=== PATIENT | male | born 1960 | race Caucasian/White ===

== ENCOUNTER 2017-12-18 08:56 | Emergency (ER) | payer OTHER, MEDICARE ==
[2017-12-18] MEDS ORDERED: SODIUM CHLORIDE 0.9% 1,000 ML IV STA (08:58)
[2017-12-18] MEDS ORDERED: MORPHINE SULFATE 4 MG/ML SYRINGE IVP STA (08:59)
[2017-12-18] MEDS ORDERED: ACETAMINOPHEN IV (For NPO) 1,000 MG in EMPTY BAG 1 BAG IVPB STA (09:02)
[2017-12-18 09:10] VITALS: TEMP 97.6
--- NOTE | 2017-12-18 09:30 | XR ---
EXAMINATION TYPE: XR chest 1V portable DATE OF EXAM: 12/18/2017 COMPARISON: Prior chest 03/26/2013 HISTORY: Trauma and pain TECHNIQUE: frontal view of the chest is obtained on 2 images. FINDINGS: There is no focal air space opacity, pleural effusion, or pneumothorax seen. The cardiac silhouette size is stable, enlarged. There are overlying cardiac leads. The osseous structures are i ntact. IMPRESSION: No acute process.
--- NOTE | 2017-12-18 09:33 | XR ---
AP pelvis HISTORY: Trauma and pain Angle frontal view of the pelvis No comparisons Patient is rotated. Prominence along the femoral necks could be due to femoral acetabular impingement , there is associated joint space loss, marginal spurring. Bone mineralization and alignment are main tained. Degenerative disc changes are present in the visualized spine. IMPRESSION: No fracture or dislocation is evident. Follow-up as indicated. Rotated exam.
[2017-12-18 09:37] LABS: Anisocytosis Slight; Basophils % (A) 1 %; Eosinophils # (A) 0.2 k/uL (0-0.7); Eosinophils % (A) 6 %; HCT 26.2 % (39.0-53.0); HGB 7.3 gm/dL (13.0-17.5); Hypochromasia Marked; Lymphocytes # (A) 0.6 k/uL (1.0-4.8); Lymphocytes % (A) 20 %; MCH 19.1 pg (25.0-35.0); MCHC 28.1 g/dL (31.0-37.0); Mean Platelet Volume 7.5; Microcytosis Marked; Monocytes # (A) 0.2 k/uL (0-1.0); Monocytes % (A) 7 %; Neutrophils # (A) 1.9 k/uL (1.3-7.7); Neutrophils % (A) 64 %; Poikilocytosis Slight; RBC 3.85 m/uL (4.30-5.90); RDW 17.9 % (11.5-15.5)
[2017-12-18 09:44] LABS: ALT 56 U/L (21-72); AST 62 U/L (17-59); Alcohol <10 mg/dL; Alkaline Phosphatase 102 U/L (38-126); Anion Gap 5 mmol/L; Blood Urea Nitrogen 13 mg/dL (9-20); Calcium 8.1 mg/dL (8.4-10.2); Carbon Dioxide 22 mmol/L (22-30); Chloride 112 mmol/L (98-107); Glucose 86 mg/dL (74-99); Potassium 4.2 mmol/L (3.5-5.1); Sodium 139 mmol/L (137-145); Total Bilirubin 0.6 mg/dL (0.2-1.3); Total Protein 5.8 g/dL (6.3-8.2)
[2017-12-18 09:48] LABS: Platelet Count 60 k/uL (150-450)
[2017-12-18 10:00] LABS: Creatine Kinase 216 U/L (55-170)
[2017-12-18 10:04] VITALS: BP 111/57; PULSE 73; RESP 18
[2017-12-18] MEDS ORDERED: ONDANSETRON 4 MG/2 ML VIAL IVP STA (10:04)
[2017-12-18 10:06] LABS: INR 1.3 (<1.2); Partial Thromboplastin Time 28.4 sec (22.0-30.0); Prothrombin Time 12.6 sec (9.0-12.0)
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
[2017-12-18 10:13] LABS: Troponin I <0.012 ng/mL (0.000-0.034)
== END 2017-12-18 10:59 | disposition home or self-care (01) ==
LOC: EC 08:56
DX: S20.219A Contusion of unspecified front wall of thorax, initial encounter (principal); M25.579 Pain in unspecified ankle and joints of unspecified foot; R06.02 Shortness of breath; K21.9 Gastro-esophageal reflux disease without esophagitis; Z79.899 Other long term (current) drug therapy; Z88.0 Allergy status to penicillin; Z88.6 Allergy status to analgesic agent; V68.5XXA Driver of heavy transport vehicle injured in noncollision transport accident in traffic accident, initial encounter; Y93.89 Activity, other specified; Y92.410 Unspecified street and highway as the place of occurrence of the external cause
CPT/HCPCS: 36415; 93005; 86900; 86901; 80053; 82550; 82553; 84484; 85025; 85610; 85730; 86850; 80320; 72170; 73610; 71045; 71260; 74177; 99285; 96374; 96375; 96361 ×2; J2405; J0131; Q9967

== ENCOUNTER 2017-12-23 23:20 | Emergency (ER) | payer MEDICARE, OTHER ==
[2017-12-23] MEDS ORDERED: SODIUM CHLORIDE 0.9% 1,000 ML IV STA (23:44)
[2017-12-23] MEDS ORDERED: PANTOPRAZOLE 40 MG/10 ML VIAL IVP STA (23:44)
[2017-12-23] MEDS ORDERED: ONDANSETRON 4 MG/2 ML VIAL IVP STA (23:44)
[2017-12-23] MEDS ORDERED: MORPHINE SULFATE 4 MG/ML SYRINGE IVP STA (23:45)
[2017-12-24 00:22] LABS: Anisocytosis Slight; HCT 28.8 % (39.0-53.0); HGB 8.3 gm/dL (13.0-17.5); Hypochromasia Marked; MCH 19.7 pg (25.0-35.0); MCHC 28.9 g/dL (31.0-37.0); MCV 68.1 fL (80.0-100.0); Mean Platelet Volume 7.5; Microcytosis Marked; Poikilocytosis Slight; RBC 4.23 m/uL (4.30-5.90); RDW 19.4 % (11.5-15.5); WBC 4.1 k/uL (3.8-10.6)
[2017-12-24 00:33] LABS: ALT 61 U/L (21-72); AST 69 U/L (17-59); Albumin 3.3 g/dL (3.5-5.0); Alkaline Phosphatase 143 U/L (38-126); Anion Gap 5 mmol/L; Blood Urea Nitrogen 13 mg/dL (9-20); Calcium 8.1 mg/dL (8.4-10.2); Carbon Dioxide 23 mmol/L (22-30); Chloride 109 mmol/L (98-107); Glucose 96 mg/dL (74-99); Potassium 4.8 mmol/L (3.5-5.1); Sodium 137 mmol/L (137-145); Total Bilirubin 1.1 mg/dL (0.2-1.3); Total Protein 6.6 g/dL (6.3-8.2)
[2017-12-24 00:40] LABS: Creatine Kinase 87 U/L (55-170)
[2017-12-24 00:53] LABS: Troponin I <0.012 ng/mL (0.000-0.034)
[2017-12-24 01:05] LABS: Basophils # (M) 0.04 k/uL (0-0.2); Eosinophils # (M) 0.41 k/uL (0-0.7); Lymphocytes # (M) 0.82 k/uL (1.0-4.8); Monocytes # (M) 0.16 k/uL (0-1.0); Neutrophils # (M) 2.67 k/uL (1.3-7.7); Neutrophils % (M) 65 %; Nucleated Red Blood Cells 0 /100 WBC (0-0); Ovalocytes Present; Platelet Count 72 k/uL (150-450); Poikilocytosis (M) Present; Target Cells Present; Total Cells Counted 100
[2017-12-24 01:06] LABS: Polychromasia Present
--- NOTE | 2017-12-24 01:10 | XR ---
EXAMINATION TYPE: XR chest 2V DATE OF EXAM: 12/24/2017 COMPARISON: 12/18/2017 HISTORY: Chest pain TECHNIQUE: Frontal and lateral views of the chest are obtained. FINDINGS: There is no heart failure nor confluent pneumonic infiltrate. There are chest leads. Costo phrenic angles are clear. Bones appear osteopenic. Heart is borderline enlarged. IMPRESSION: No active cardiopulmonary disease. No change.
--- NOTE | 2017-12-24 01:11 | XR ---
EXAMINATION TYPE: XR lumbar spine 2 or 3V DATE OF EXAM: 12/24/2017 COMPARISON: NONE HISTORY: Back pain TECHNIQUE: 3 views FINDINGS: Lumbar vertebra have normal spacing and alignment. Posterior elements are intact. There is minimal spur formation. Sacroiliac joints appear intact. IMPRESSION: Negative lumbar spine exam. No compression fracture.
[2017-12-24] MEDS ORDERED: ONDANSETRON 4 MG/2 ML VIAL IVP STA (01:12)
--- NOTE | 2017-12-24 01:14 | XR ---
EXAMINATION TYPE: XR thoracic spine complete DATE OF EXAM: 12/24/2017 COMPARISON: NONE HISTORY: Back pain TECHNIQUE: 3 views FINDINGS: Thoracic vertebra have normal alignment. There is 20% anterior wedging of T11 that is old a nd could be developmental. There is 40% anterior wedging of T8 vertebra that shows no spurring. This wedging was also present on the old chest x-ray of 03/26/2013 and appears not significantly different . There is no paraspinal mass. Posterior elements are intact.. IMPRESSION: Mild compression deformities as above appear old and stable compared to 5 years ago. No a cute fracture seen.
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
[2017-12-24 03:14] VITALS: BP 145/65; PULSE 59; RESP 16; TEMP 97.2
[2017-12-25] MEDS ORDERED: LIDOCAINE 5% PATCH TOPICAL SCH (03:00)
== END 2017-12-24 03:21 | disposition home or self-care (01) ==
LOC: EC 23:20
DX: K92.2 Gastrointestinal hemorrhage, unspecified (principal); S20.219A Contusion of unspecified front wall of thorax, initial encounter; M54.5 Low back pain; K21.9 Gastro-esophageal reflux disease without esophagitis; Z79.899 Other long term (current) drug therapy; Z88.0 Allergy status to penicillin; Z88.6 Allergy status to analgesic agent; V49.9XXA Car occupant (driver) (passenger) injured in unspecified traffic accident, initial encounter
CPT/HCPCS: 36415; 86900; 86901; 80053; 82550; 82553; 84484; 85025; 85730; 86850; 82272; 72072; 72100; 71046; 99285; 96374; 96375 ×2; 96376; 96361 ×3; J2270; J2405; C9113

== ENCOUNTER → 2018-06-18 | Outpatient (CLI) | payer MEDICARE, OTHER ==
[2018-06-18 10:26] LABS: INR 1.3 (<1.2); Prothrombin Time 12.9 sec (9.0-12.0)
[2018-06-18 11:24] LABS: Anisocytosis Moderate; Basophils % (A) 1 %; Eosinophils # (A) 0.2 k/uL (0-0.7); Eosinophils % (A) 6 %; HCT 34.6 % (39.0-53.0); HGB 9.6 gm/dL (13.0-17.5); Hypochromasia Marked; Lymphocytes # (A) 0.6 k/uL (1.0-4.8); Lymphocytes % (A) 18 %; MCHC 27.7 g/dL (31.0-37.0); MCV 72.4 fL (80.0-100.0); Mean Platelet Volume 6.3; Microcytosis Marked; Monocytes # (A) 0.2 k/uL (0-1.0); Monocytes % (A) 7 %; Neutrophils # (A) 2.1 k/uL (1.3-7.7); Neutrophils % (A) 66 %; RBC 4.78 m/uL (4.30-5.90); RDW 21.9 % (11.5-15.5); WBC 3.1 k/uL (3.8-10.6)
[2018-06-18 11:47] LABS: Ovalocytes Present; Poikilocytosis (M) Present
[2018-06-18 11:48] LABS: Platelet Count 77 k/uL (150-450)
[2018-06-18 16:31] LABS: Alpha Fetoprotein, Tumor Mkr 22.2 ng/mL (0.0-7.9)
[2018-06-18 17:24] LABS: Albumin 3.6 g/dL (3.80-4.90); Albumin/Globulin Ratio 1.16 (1.20-2.10); Bilirubin, Conjugated 0.3 mg/dL (0.20-0.40); Bilirubin,Unconjugated 0.3 mg/dL; Globulin 3.1 g/dL (1.6-3.3); Total Bilirubin 0.6 mg/dL (0.2-1.2); Total Protein 6.7 g/dL (6.2-8.2)
[2018-06-18 18:27] LABS: Hepatitis A Antibody IgM Non-Reactive (Non-Reactive); Hepatitis B Core IgM Non-Reactive (Non-Reactive)
[2018-06-19 14:35] LABS: Hepatits C Virus RNA DETECTED (Not detected); LOG HCV IU/mL 4.75 (<1.08)
== END | disposition home or self-care (01) ==
LOC: LABWHC1 09:44
PROVIDERS: ATTEND Physician Assistant
DX: K74.60 Unspecified cirrhosis of liver (principal); B18.2 Chronic viral hepatitis C
CPT/HCPCS: 36415; 80074; 80076; 82105; 85025; 85610; 86038; 87522

== ENCOUNTER → 2018-08-01 | Outpatient (CLI) | payer MEDICARE, OTHER | END | disposition home or self-care (01) | LOC: LABWHC1 14:56 | PROVIDERS: ATTEND Physician Assistant | DX: B18.2 Chronic viral hepatitis C (principal) | CPT/HCPCS: 36415; 87522 ==

== ENCOUNTER 2020-06-26 08:02 | Observation (INO) | payer OTHER, MEDICARE ==
[2020-06-26 08:13] LABS: Glucose,Whole Blood 91 mg/dL (75-99)
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
[2020-06-26 08:34] LABS: INR 1.2 (<1.2); Partial Thromboplastin Time 26.7 sec (22.0-30.0); Prothrombin Time 12.7 sec (9.0-12.0)
[2020-06-26 08:35] LABS: ALT 34 U/L (4-49); AST 52 U/L (17-59); African American GFR (CKD) >90 (>60 ml/min/1.73 sqM); Albumin 3.5 g/dL (3.5-5.0); Alcohol <10 mg/dL; Alkaline Phosphatase 171 U/L (38-126); Anion Gap 2 mmol/L; Blood Urea Nitrogen 16 mg/dL (9-20); Calcium 8.7 mg/dL (8.4-10.2); Carbon Dioxide 25 mmol/L (22-30); Chloride 109 mmol/L (98-107); Glucose 101 mg/dL (74-99); Non-African American GFR(CKD) >90 (>60 ml/min/1.73 sqM); Potassium 4.2 mmol/L (3.5-5.1); Sodium 136 mmol/L (137-145); Total Bilirubin 1.5 mg/dL (0.2-1.3)
[2020-06-26 08:42] LABS: Basophils % (A) 1 %; Eosinophils # (A) 0.2 k/uL (0-0.7); Eosinophils % (A) 4 %; HCT 42.4 % (39.0-53.0); HGB 13.7 gm/dL (13.0-17.5); Lymphocytes # (A) 0.6 k/uL (1.0-4.8); Lymphocytes % (A) 15 %; MCHC 32.2 g/dL (31.0-37.0); MCV 93.1 fL (80.0-100.0); Mean Platelet Volume 9.8; Monocytes # (A) 0.4 k/uL (0-1.0); Monocytes % (A) 10 %; Neutrophils # (A) 2.7 k/uL (1.3-7.7); Neutrophils % (A) 67 %; RBC 4.56 m/uL (4.30-5.90); RDW 15.4 % (11.5-15.5); WBC 4.1 k/uL (3.8-10.6)
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
[2020-06-26 09:05] LABS: Platelet Count 73 k/uL (150-450)
[2020-06-26 09:12] LABS: Appearance,Urine Clear (Clear); Bilirubin,Urine Negative (Negative); Blood,Urine Negative (Negative); Color,Urine Yellow; Glucose,Urine (UA) Negative (Negative); Ketones,Urine Negative (Negative); Leukocyte Esterase,Urine Negative (Negative); Nitrite,Urine Negative (Negative); Protein,Urine Negative (Negative); Specific Gravity,Urine 1.028 (1.001-1.035)
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
[2020-06-26 09:47] LABS: Amphetamine Screen,Urine Not Detected (NotDetected); Barbiturate Screen,Urine Not Detected (NotDetected); Benzodiazepines Screen,Urine Not Detected (NotDetected); Cocaine Screen,Urine Not Detected (NotDetected); Methadone Screen, Urine Not Detected (NotDetected); Opiate Screen,Urine Not Detected (NotDetected); Oxycodone Screen, Urine Not Detected (NotDetected); Phencyclidine Screen,Urine Not Detected (NotDetected); Tricyclic Antidepressant,Urine Not Detected (NotDetected); Urn Cannabinoid Scrn Detected (NotDetected)
[2020-06-26] MEDS ORDERED: NALOXONE 0.4 MG/ML 1 ML VIAL IV PRN (09:59)
[2020-06-26] MEDS ORDERED: MORPHINE SULFATE 4 MG/ML SYRINGE IVP STA (10:04)
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
[2020-06-26] MEDS ORDERED: MORPHINE SULFATE 2 MG/ML SYRINGE IVP PRN (12:07)
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
[2020-06-26] MEDS: HEPARIN SODIUM,PORCINE 5,000 UNIT/ML 1 ML VIAL SQ SCH (17:52)
[2020-06-26] MEDS: ACETAMINOPHEN TAB 325 MG TAB PO PRN (19:52)
[2020-06-27] MEDS: HEPARIN SODIUM,PORCINE 5,000 UNIT/ML 1 ML VIAL SQ SCH ×3 (00:50→17:20)
[2020-06-27] MEDS: ACETAMINOPHEN TAB 325 MG TAB PO PRN ×4 (03:16→21:05)
[2020-06-27] MEDS: ASPIRIN 325 MG TAB PO SCH (09:10)
[2020-06-27] MEDS: CHOLECALCIFEROL 25 MCG (1000 IU) TABLET PO SCH (09:10)
[2020-06-27] MEDS: VITAMIN E (DL,TOCOPHERYL ACET) 400 UNIT CAP PO SCH (09:10)
[2020-06-27] MEDS: FERROUS SULFATE 325 MG TAB PO SCH (09:10)
[2020-06-27] MEDS: MULTIVITAMINS, THERA 1 EACH TAB PO SCH (09:10)
[2020-06-27] MEDS: MAGNESIUM OXIDE 400 MG TAB PO SCH (09:10)
[2020-06-27] MEDS: CALCIUM CARBONATE 500 MG CHEWABLE PO SCH (09:10)
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
[2020-06-27] MEDS ORDERED: HYDROcodone/APAP 5-325MG 1 EACH TAB PO PRN (10:11)
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
[2020-06-27] MEDS: methocarbamoL 500 MG TAB PO SCH ×2 (17:20→21:06)
[2020-06-28] MEDS: HEPARIN SODIUM,PORCINE 5,000 UNIT/ML 1 ML VIAL SQ SCH ×3 (01:06→16:42)
[2020-06-28] MEDS: ACETAMINOPHEN TAB 325 MG TAB PO PRN ×2 (08:02→16:47)
[2020-06-28] MEDS: ASPIRIN 325 MG TAB PO SCH (08:03)
[2020-06-28] MEDS: methocarbamoL 500 MG TAB PO SCH ×2 (08:03→12:35)
[2020-06-28] MEDS: CHOLECALCIFEROL 25 MCG (1000 IU) TABLET PO SCH (08:03)
[2020-06-28] MEDS: CALCIUM CARBONATE 500 MG CHEWABLE PO SCH (08:03)
[2020-06-28] MEDS: VITAMIN E (DL,TOCOPHERYL ACET) 400 UNIT CAP PO SCH (08:03)
[2020-06-28] MEDS: FERROUS SULFATE 325 MG TAB PO SCH (08:03)
[2020-06-28] MEDS: MAGNESIUM OXIDE 400 MG TAB PO SCH (08:03)
[2020-06-28] MEDS: MULTIVITAMINS, THERA 1 EACH TAB PO SCH (08:03)
[2020-06-28 08:11] VITALS: RESP 16
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
[2020-06-28 13:46] VITALS: BP 141/70; PULSE 72; TEMP 98.1
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
== END 2020-06-28 17:25 | disposition home or self-care (01) ==
LOC: EC 08:02 → 6NMEDSUR 10:00
PROVIDERS: ADMIT Surgery; ATTEND Surgery
DX: M48.54XA Collapsed vertebra, not elsewhere classified, thoracic region, initial encounter for fracture (principal); M54.9 Dorsalgia, unspecified; H91.90 Unspecified hearing loss, unspecified ear; M48.061 Spinal stenosis, lumbar region without neurogenic claudication; M51.26 Other intervertebral disc displacement, lumbar region; R18.8 Other ascites; V43.52XA Car driver injured in collision with other type car in traffic accident, initial encounter; Y92.410 Unspecified street and highway as the place of occurrence of the external cause; Z79.82 Long term (current) use of aspirin
CPT/HCPCS: 96372 ×3; 96374; 99285; 36415; 93005; 97162; 97166; 86900; 86901; 80053; 84484; 85025; 85610; 85730; 86850; 81003; 80306; 80320; 72170; 71045; 72129; 72125; 72132; 70450; 71260; 74177; 72146; 72148; G0378 ×3; J2270; J1644 ×3; Q9967

== ENCOUNTER 2020-08-23 04:23 | Inpatient (IN) | payer MEDICARE, OTHER ==
[2020-08-23] MEDS ORDERED: PANTOPRAZOLE 40 MG/10 ML VIAL IVP STA (04:43)
[2020-08-23] MEDS ORDERED: SODIUM CHLORIDE 0.9% 1,000 ML IV STA (04:43)
--- NOTE | 2020-08-23 04:48 | ED ---
GI Bleed HPI - General Chief complaint: GI Bleed Stated complaint: GI Bleed Time Seen by Provider: 08/23/20 04:43 Source: patient, EMS, RN notes reviewed, old records reviewed Mode of arrival: EMS Limitations: no limitations - History of Present Illness Initial comments: This is a 60-year-old male who is hard of hearing coming in for likely upper GI bleed he has had history of hepatitis C with some liver disease. Patient was treated for about a year ago has had no problems since. Patient has had some dark black tarry stools for a few days now and had an significant episode of bright upper GI, blood bright red blood per vomit. Patient does not feel lightheaded dizzy or weak may have some mild abdominal pain but defervesced to concerning. Otherwise no recent fever cough or congestion MD complaint: blood streaked emesis, gross hematemesis, melena -: days(s) Radiation: none Severity scale (1-10): 7 Quality: painless Consistency: now resolved (Patient has had no vomiting of blood here in the ER) Improves with: none Worsens with: none Context: history of GI bleed, liver disease Associated Symptoms: nausea, vomiting, loss of appetite, malaise, weakness - Related Data Home Medications Medication Instructions Recorded Confirmed Aspirin EC [Ecotrin] 325 mg PO DAILY 06/26/20 06/26/20 Calcium Carbonate [Calcium] 600 mg PO DAILY 06/26/20 06/26/20 Cholecalciferol [Vitamin D3 (25 25 mcg PO DAILY 06/26/20 06/26/20 Mcg = 1000 Iu)] Ferrous Sulfate [Iron (65 MG 325 mg PO DAILY 06/26/20 06/26/20 Elemental)] Magnesium 200 mg PO DAILY 06/26/20 06/26/20 Multivit-Min/FA/Lycopen/Lutein 1 tab PO DAILY 06/26/20 06/26/20 [Centrum Silver Men Tablet] Vitamin E 1,000 unit PO DAILY 06/26/20 06/26/20 Previous Rx's Medication Instructions Recorded HYDROcodone/APAP 5-325MG [Dexter 1 each PO Q6HR PRN #12 tab 06/28/20 5-325] methocarbamoL [Robaxin] 500 mg PO QID #28 tab 06/28/20 Allergies Allergy/AdvReac Type Severity Reaction Status Date / Time ibuprofen [From Motrin] Allergy Unknown Verified 08/23/20 04:34 Penicillins Allergy Unknown Verified 08/23/20 04:34 Review of Systems ROS Statement: Those systems with pertinent positive or pertinent negative responses have been documented in the HPI. ROS Other: All systems not noted in ROS Statement are negative. Past Medical History Past Medical History: GERD/Reflux History of Any Multi-Drug Resistant Organisms: None Reported Past Surgical History: Cholecystectomy, Orthopedic Surgery Additional Past Surgical History / Comment(s): LEFT AND RIGHT SHOULDER, LIVER SURGERY Past Psychological History: No Psychological Hx Reported Smoking Status: Unknown if ever smoked Past Alcohol Use History: None Reported Past Drug Use History: Marijuana General Exam Limitations: no limitations General appearance: alert, in no apparent distress Head exam: Present: atraumatic, normocephalic, normal inspection Eye exam: Present: normal appearance, PERRL, EOMI. Absent: scleral icterus, conjunctival injection, periorbital swelling ENT exam: Present: normal exam, mucous membranes moist Neck exam: Present: normal inspection. Absent: tenderness, meningismus, lymphadenopathy Respiratory exam: Present: normal lung sounds bilaterally. Absent: respiratory distress, wheezes, rales, rhonchi, stridor Cardiovascular Exam: Present: regular rate, normal rhythm, normal heart sounds. Absent: systolic murmur, diastolic murmur, rubs, gallop, clicks GI/Abdominal exam: Present: soft, normal bowel sounds. Absent: distended, tenderness, guarding, rebound, rigid Extremities exam: Present: normal inspection, full ROM, normal capillary refill. Absent: tenderness, pedal edema, joint swelling, calf tenderness Back exam: Present: normal inspection Neurological exam: Present: alert, oriented X3, CN II-XII intact Psychiatric exam: Present: normal affect, normal mood Skin exam: Present: warm, dry, intact, normal color. Absent: rash Course Vital Signs 08/23/20 08/23/20 08/23/20 04:25 05:00 06:06 Temperature 99.0 F Pulse Rate 98 104 H 105 H Respiratory 18 18 18 Rate Blood Pressure 115/82 114/89 124/82 O2 Sat by Pulse 97 97 Oximetry - Reevaluation(s) Reevaluation #1: 08/23/20 06:21 Medical records reviewed Reevaluation #2: 08/23/20 06:21 Patient has no recurrent vomiting here in the ER, no significant amount of blood being passed currently Reevaluation #3: 08/23/20 06:21 Is informed of results here, questions are answered Medical Decision Making - Medical Decision Making 60 male DF for upper GI bleed likely brisk secondary to black tarry nature of stools. Bright red blood upper GI bleed with history of liver disease possible varices. Patient admitted for GI evaluation - Lab Data Result diagrams: 08/23/20 04:51 08/23/20 04:51 Lab Results 08/23/20 08/23/20 08/23/20 Range/Units 04:51 04:51 04:51 WBC 12.4 H (3.8-10.6) k/uL RBC 3.90 L (4.30-5.90) m/uL Hgb 11.6 L (13.0-17.5) gm/dL Hct 35.4 L (39.0-53.0) % MCV 90.7 (80.0-100.0) fL MCH 29.8 (25.0-35.0) pg MCHC 32.9 (31.0-37.0) g/dL RDW 15.4 (11.5-15.5) % Plt Count 171 D (150-450) k/uL MPV 9.4 Neutrophils % 75 % Lymphocytes % 12 % Monocytes % 9 % Eosinophils % 2 % Basophils % 0 % Neutrophils # 9.3 H (1.3-7.7) k/uL Lymphocytes # 1.5 (1.0-4.8) k/uL Monocytes # 1.1 H (0-1.0) k/uL Eosinophils # 0.2 (0-0.7) k/uL Basophils # 0.0 (0-0.2) k/uL PT 15.1 H (9.0-12.0) sec INR 1.5 H (<1.2) APTT 29.7 (22.0-30.0) sec Sodium 133 L (137-145) mmol/L Potassium 4.9 (3.5-5.1) mmol/L Chloride 100 (98-107) mmol/L Carbon Dioxide 29 (22-30) mmol/L Anion Gap 4 mmol/L BUN 31 H (9-20) mg/dL Creatinine 0.80 (0.66-1.25) mg/dL Est GFR (CKD-EPI)AfAm >90 (>60 ml/min/1.73 sqM) Est GFR (CKD-EPI)NonAf >90 (>60 ml/min/1.73 sqM) Glucose 101 H (74-99) mg/dL Calcium 8.2 L (8.4-10.2) mg/dL Magnesium 1.6 (1.6-2.3) mg/dL Total Bilirubin 1.7 H (0.2-1.3) mg/dL AST 82 H (17-59) U/L ALT 23 (4-49) U/L Alkaline Phosphatase 214 H (38-126) U/L Creatine Kinase 100 (55-170) U/L CK-MB (CK-2) (0.0-2.4) ng/mL Troponin I (0.000-0.034) ng/mL Total Protein 6.6 (6.3-8.2) g/dL Albumin 2.9 L (3.5-5.0) g/dL Lipase 243 (23-300) U/L 08/23/20 Range/Units 04:51 WBC (3.8-10.6) k/uL RBC (4.30-5.90) m/uL Hgb (13.0-17.5) gm/dL Hct (39.0-53.0) % MCV (80.0-100.0) fL MCH (25.0-35.0) pg MCHC (31.0-37.0) g/dL RDW (11.5-15.5) % Plt Count (150-450) k/uL MPV Neutrophils % % Lymphocytes % % Monocytes % % Eosinophils % % Basophils % % Neutrophils # (1.3-7.7) k/uL Lymphocytes # (1.0-4.8) k/uL Monocytes # (0-1.0) k/uL Eosinophils # (0-0.7) k/uL Basophils # (0-0.2) k/uL PT (9.0-12.0) sec INR (<1.2) APTT (22.0-30.0) sec Sodium (137-145) mmol/L Potassium (3.5-5.1) mmol/L Chloride (98-107) mmol/L Carbon Dioxide (22-30) mmol/L Anion Gap mmol/L BUN (9-20) mg/dL Creatinine (0.66-1.25) mg/dL Est GFR (CKD-EPI)AfAm (>60 ml/min/1.73 sqM) Est GFR (CKD-EPI)NonAf (>60 ml/min/1.73 sqM) Glucose (74-99) mg/dL Calcium (8.4-10.2) mg/dL Magnesium (1.6-2.3) mg/dL Total Bilirubin (0.2-1.3) mg/dL AST (17-59) U/L ALT (4-49) U/L Alkaline Phosphatase (38-126) U/L Creatine Kinase (55-170) U/L CK-MB (CK-2) 1.3 (0.0-2.4) ng/mL Troponin I <0.012 (0.000-0.034) ng/mL Total Protein (6.3-8.2) g/dL Albumin (3.5-5.0) g/dL Lipase (23-300) U/L Critical Care Time Critical Care Time: Yes Total Critical Care Time: 31 Disposition Clinical Impression: Upper gastrointestinal hemorrhage, Esophageal varices Disposition: ADMITTED IP TO THIS HOSP Condition: Fair Is patient prescribed a controlled substance at d/c from ED?: No Referrals: Felipe Mcallister MD [Primary Care Provider] - 1-2 days
[2020-08-23 05:16] LABS: Basophils % (A) 0 %; Eosinophils # (A) 0.2 k/uL (0-0.7); Eosinophils % (A) 2 %; HCT 35.4 % (39.0-53.0); HGB 11.6 gm/dL (13.0-17.5); Lymphocytes # (A) 1.5 k/uL (1.0-4.8); Lymphocytes % (A) 12 %; MCH 29.8 pg (25.0-35.0); MCHC 32.9 g/dL (31.0-37.0); MCV 90.7 fL (80.0-100.0); Mean Platelet Volume 9.4; Monocytes # (A) 1.1 k/uL (0-1.0); Monocytes % (A) 9 %; Neutrophils # (A) 9.3 k/uL (1.3-7.7); Neutrophils % (A) 75 %; RDW 15.4 % (11.5-15.5); WBC 12.4 k/uL (3.8-10.6)
[2020-08-23 05:24] LABS: INR 1.5 (<1.2); Partial Thromboplastin Time 29.7 sec (22.0-30.0); Prothrombin Time 15.1 sec (9.0-12.0)
[2020-08-23 05:32] LABS: Platelet Count 171 k/uL (150-450)
[2020-08-23 05:33] LABS: ALT 23 U/L (4-49); AST 82 U/L (17-59); African American GFR (CKD) >90 (>60 ml/min/1.73 sqM); Albumin 2.9 g/dL (3.5-5.0); Alkaline Phosphatase 214 U/L (38-126); Anion Gap 4 mmol/L; Blood Urea Nitrogen 31 mg/dL (9-20); Calcium 8.2 mg/dL (8.4-10.2); Carbon Dioxide 29 mmol/L (22-30); Chloride 100 mmol/L (98-107); Creatine Kinase 100 U/L (55-170); Glucose 101 mg/dL (74-99); Lipase 243 U/L (23-300); Magnesium 1.6 mg/dL (1.6-2.3); Non-African American GFR(CKD) >90 (>60 ml/min/1.73 sqM); Potassium 4.9 mmol/L (3.5-5.1); Sodium 133 mmol/L (137-145); Total Bilirubin 1.7 mg/dL (0.2-1.3); Total Protein 6.6 g/dL (6.3-8.2)
[2020-08-23] MEDS ORDERED: NALOXONE 0.4 MG/ML 1 ML VIAL IV PRN (05:40)
[2020-08-23 05:43] LABS: Creatine Kinase MB 1.3 ng/mL (0.0-2.4); Troponin I <0.012 ng/mL (0.000-0.034)
[2020-08-23] MEDS: PANTOPRAZOLE 40 MG/10 ML VIAL IV SCH ×2 (09:23→19:52)
[2020-08-23 11:48] LABS: Basophils % (A) 0 %; Eosinophils # (A) 0.2 k/uL (0-0.7); Eosinophils % (A) 2 %; HCT 31.8 % (39.0-53.0); HGB 10.5 gm/dL (13.0-17.5); Lymphocytes # (A) 1.1 k/uL (1.0-4.8); Lymphocytes % (A) 13 %; MCH 29.9 pg (25.0-35.0); MCHC 32.9 g/dL (31.0-37.0); MCV 90.7 fL (80.0-100.0); Mean Platelet Volume 8.6; Monocytes # (A) 0.8 k/uL (0-1.0); Monocytes % (A) 9 %; Neutrophils # (A) 6.5 k/uL (1.3-7.7); Neutrophils % (A) 74 %; Platelet Count 128 k/uL (150-450); RBC 3.51 m/uL (4.30-5.90); RDW 15.4 % (11.5-15.5); WBC 8.7 k/uL (3.8-10.6)
[2020-08-23] MEDS: IOPAMIDOL CONTRAST (ORAL USE) VIAL PO PRN ×2 (15:45→16:49)
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
--- NOTE | 2020-08-23 18:17 | CT ---
EXAMINATION TYPE: CT abdomen pelvis w con DATE OF EXAM: 08/23/2020 COMPARISON: 06/26/2020. HISTORY: abdominal pain CT DLP: 1320 mGycm Automated exposure control for dose reduction was used. TECHNIQUE: Helical acquisition of images was performed from the lung bases through the pelvis. CONTRAST: Performed with Oral Contrast and with IV Contrast, patient injected with 100 mL of Isovue 300. FINDINGS: LUNG BASES: No significant abnormality is appreciated. LIVER/GB: Redemonstrated hepatic nodular contour consistent with cirrhosis. Ill-defined, low attenuat ing infiltrative lesions throughout the left lobe, measures approximately 10.1 x 7.6 cm. Upper abdomi nal and esophageal varices again seen. PANCREAS: New 2.9 x 2.5 cm anterior peripancreatic mass in the region of the head/neck. SPLEEN: Splenomegaly, stable. ADRENALS: No significant abnormality is seen. KIDNEYS: No significant abnormality is seen. FREE AIR: No free air is visualized. RETROPERITONEAL ADENOPATHY: New left retrocrural lymph node measuring 1.8 cm short axis. Additional smaller retrocrural lymph nodes are seen. REPRODUCTIVE ORGANS: No significant abnormality is seen URINARY BLADDER: No significant abnormality is seen. PELVIC ADENOPATHY: None visualized. OSSEOUS STRUCTURES: No significant abnormality is seen. BOWEL: Small periumbilical and bilateral inguinal hernias communicating with ascites. No bowel obstr uction, free air or fluid. Nonspecific decompressed ascending colon with wall thickening. OTHER: New moderate volume abdominal/pelvic ascites. IMPRESSION: New moderate abdominal/pelvic ascites. Infiltrative left hepatic lobe mass, concerning for malignancy. Also new peripancreatic nodule, and r etrocrural lymphadenopathy, concerning for metastatic disease. Nonspecific ascending/cecal colonic wall thickening. Attention on follow-up.
[2020-08-23] MEDS: ONDANSETRON 4 MG/2 ML VIAL IVP PRN (21:42)
[2020-08-24] MEDS ORDERED: LACTATED RINGERS 1,000 ML IV SCH (07:10)
[2020-08-24] MEDS ORDERED: PROPOFOL 10 MG/ML 20 ML VIAL IV ONE (07:35)
[2020-08-24] MEDS ORDERED: LIDOCAINE 1% INJ 10MG/ML (20 ML MDV) ONE (07:35)
[2020-08-24] MEDS ORDERED: SODIUM CHLORIDE 0.9% 500 ML 500 ML IV ONE (07:39)
--- NOTE | 2020-08-24 08:15 | P.CONS ---
History of Present Illness - Reason for Consult Consult date: 08/23/20 GI bleed Requesting physician: Erick Berry - Chief Complaint GI bleed - History of Present Illness 60-year-old male with a medical history significant for hepatitis C status post treatment with antiviral therapy, GERD and hearing impairment who presented to the emergency department due to concerns over GI bleeding. The patient reports multiple black tarry bowel movements. He denies any abdominal pain in association with the dark colored bowel movements. He does report some episodes of vomiting what he describes as bright red blood. He reports a remote history of ulcer in the past and believes his last EGD was performed 2 years ago. On presentation the patient was found to have a hemoglobin of 11.6 with a total bilirubin of 1.7, alkaline phosphatase 214, AST 82 and ALT 23. Lipase was 243. Patient had elevation of his BUN greater than 30 with a creatinine of 0.8. Hemodynamically the patient is stable and seen in the ER. No other acute complaints at this time. Review of Systems REVIEW OF SYSTEMS: CONSTITUTIONAL: Denies any fevers, chills, weight change or fatigue. CARDIOVASCULAR: Denies any chest pain, palpitations high or low blood pressures RESPIRATORY: Denies any shortness of breath, hemoptysis or cough. GENITOURINARY: No dysuria or hematuria. MUSCULOSKELETAL: No weakness reported. SKIN: Denies any new rashes or lesions, jaundice or pallor. PSYCHIATRIC: Denies any depression or anxiety. NEUROLOGY: Denies headache, denies any new focal deficits, hearing impairment at baseline. EARS/NOSE/THROAT: No recent hearing change, congestion, nasal discharge or sore throat. EYES: No pain in eyes, discharge or change in vision. GASTROINTESTINAL: As per HPI. Past Medical History Past Medical History: GERD/Reflux History of Any Multi-Drug Resistant Organisms: None Reported Past Surgical History: Cholecystectomy, Orthopedic Surgery Additional Past Surgical History / Comment(s): LEFT AND RIGHT SHOULDER, LIVER SURGERY Past Psychological History: No Psychological Hx Reported Smoking Status: Unknown if ever smoked Past Alcohol Use History: None Reported Past Drug Use History: Marijuana - Past Family History Mother Additional Family Medical History / Comment(s): Mother is . She was an alcoholic. Father History Unknown: Yes Additional Family Medical History / Comment(s): Pt does not know who his father is. Medications and Allergies Home Medications Medication Instructions Recorded Confirmed Type Aspirin EC [Ecotrin] 325 mg PO DAILY 06/26/20 08/23/20 History Calcium Carbonate [Calcium] 600 mg PO DAILY 06/26/20 08/23/20 History Cholecalciferol [Vitamin D3 (25 25 mcg PO DAILY 06/26/20 08/23/20 History Mcg = 1000 Iu)] Ferrous Sulfate [Iron (65 MG 325 mg PO DAILY 06/26/20 08/23/20 History Elemental)] Magnesium 200 mg PO DAILY 06/26/20 08/23/20 History Multivit-Min/FA/Lycopen/Lutein 1 tab PO DAILY 06/26/20 08/23/20 History [Centrum Silver Men Tablet] Vitamin E 1,000 unit PO DAILY 06/26/20 08/23/20 History Allergies Allergy/AdvReac Type Severity Reaction Status Date / Time ibuprofen [From Motrin] Allergy Unknown Verified 08/23/20 07:25 Penicillins Allergy Unknown Verified 08/23/20 07:25 Physical Exam Vitals: Vital Signs Temp Pulse Resp BP Pulse Ox 08/23/20 11:00 18 96 08/23/20 10:00 18 96 08/23/20 09:00 98.7 F 90 18 128/79 96 08/23/20 08:00 18 08/23/20 07:52 18 08/23/20 06:06 105 H 18 124/82 97 08/23/20 05:00 104 H 18 114/89 08/23/20 04:25 99.0 F 98 18 115/82 97 Intake and Output 08/22/20 08/23/20 08/23/20 22:59 06:59 14:59 Other: Weight 95.254 kg On physical examination, patient appears comfortable in no apparent distress. HEAD: Normocephalic, atraumatic. EYES: No scleral icterus. No conjunctival injection. MOUTH: No lesions, tongue midline. NECK: Trachea midline, no gross abnormalities. CHEST: Clear to auscultation with no wheezing or rhonchi appreciated. HEART: Regular rate and rhythm. ABDOMEN: Soft, nontender to palpation. Bowel sounds are positive. No organomegaly. No guarding or rigidity. EXTREMITIES: No pedal edema. SKIN: No rashes, no jaundice. NEUROLOGIC: Alert and oriented x3. No focal deficits. Results CBC & Chem 7: 08/23/20 11:35 08/23/20 04:51 Labs: Abnormal Lab Results - Last 24 Hours (Table) 08/23/20 08/23/20 08/23/20 Range/Units 04:51 04:51 04:51 WBC 12.4 H (3.8-10.6) k/uL RBC 3.90 L (4.30-5.90) m/uL Hgb 11.6 L (13.0-17.5) gm/dL Hct 35.4 L (39.0-53.0) % Plt Count (150-450) k/uL Neutrophils # 9.3 H (1.3-7.7) k/uL Monocytes # 1.1 H (0-1.0) k/uL PT 15.1 H (9.0-12.0) sec INR 1.5 H (<1.2) Sodium 133 L (137-145) mmol/L BUN 31 H (9-20) mg/dL Glucose 101 H (74-99) mg/dL Calcium 8.2 L (8.4-10.2) mg/dL Total Bilirubin 1.7 H (0.2-1.3) mg/dL AST 82 H (17-59) U/L Alkaline Phosphatase 214 H (38-126) U/L Albumin 2.9 L (3.5-5.0) g/dL 08/23/20 Range/Units 11:35 WBC (3.8-10.6) k/uL RBC 3.51 L (4.30-5.90) m/uL Hgb 10.5 L (13.0-17.5) gm/dL Hct 31.8 L (39.0-53.0) % Plt Count 128 L (150-450) k/uL Neutrophils # (1.3-7.7) k/uL Monocytes # (0-1.0) k/uL PT (9.0-12.0) sec INR (<1.2) Sodium (137-145) mmol/L BUN (9-20) mg/dL Glucose (74-99) mg/dL Calcium (8.4-10.2) mg/dL Total Bilirubin (0.2-1.3) mg/dL AST (17-59) U/L Alkaline Phosphatase (38-126) U/L Albumin (3.5-5.0) g/dL CT scan - abdomen: report reviewed (Computed tomography scan of the abdomen ordered an report pending.) Assessment and Plan (1) Upper gastrointestinal hemorrhage Narrative/Plan: 60-year-old male with multiple medical comorbidities including hepatitis C of the liver treated in the past as well as prior upper GI bleed who presented with multiple episodes of emesis and blood in his vomitus. Found to have an acute fall in his hemoglobin of 11.6 on presentation. Patient reports significant abdominal tenderness after presentation and plan is for computed tomography scan of the abdomen for further evaluation. Unclear etiology of GI bleeding with differential including variceal bleeding, peptic ulcer disease, gastritis, or other etiology. Current Visit: Yes Status: Acute Code(s): K92.2 - GASTROINTESTINAL HEMORRHAGE, UNSPECIFIED SNOMED Code(s): 65690332 (2) Esophageal varices Current Visit: Yes Status: Acute Code(s): I85.00 - ESOPHAGEAL VARICES WIT HOUT BLEEDING SNOMED Code(s): 85707357 (3) Cirrhosis Current Visit: Yes Status: Acute Code(s): K74.60 - UNSPECIFIED CIRRHOSIS OF LIVER SNOMED Code(s): 63309434 (4) Anemia associated with acute blood loss Current Visit: Yes Status: Acute Code(s): D62 - ACUTE POSTHEMORRHAGIC ANEMIA SNOMED Code(s): 042391701 (5) History of type C viral hepatitis Current Visit: Yes Status: Acute Code(s): Z86.19 - PERSONAL HISTORY OF OTHER INFECTIOUS AND PARASITIC DISEASES SNOMED Code(s): 49126403907533 Plan: Supportive care Clear liquid diet and nothing by mouth after midnight Continue monitor hemoglobin and hematocrit and transfuse as needed Computed tomography scan of the abdomen ordered for evaluation of abdominal pain Plan for EGD tomorrow for further evaluation Protonix 40 mg IV twice a day Further recommendations pending findings of EGD Thank you for allowing us participate in the care of the patient
--- NOTE | 2020-08-24 08:24 | P.PCN ---
Date of Procedure: 08/24/20 Description of Procedure: BRIEF HISTORY: 60-year-old male with a medical history significant for hepatitis C status post treatment with antiviral therapy, GERD and hearing impairment who presented to the emergency department due to concerns over GI bleeding. The patient reports multiple black tarry bowel movements. He denies any abdominal pain in association with the dark colored bowel movements. He does report some episodes of vomiting what he describes as bright red blood. He reports a remote history of ulcer in the past and believes his last EGD was performed 2 years ago. On presentation the patient was found to have a hemoglobin of 11.6 with a total bilirubin of 1.7, alkaline phosphatase 214, AST 82 and ALT 23. Lipase was 243. Patient had elevation of his BUN greater than 30 with a creatinine of 0.8. Hemodynamically the patient is stable and seen in the ER. No other acute complaints at this time. PROCEDURE PERFORMED: Esophagogastroduodenoscopy with biopsy and esophageal variceal banding. PREOPERATIVE DIAGNOSIS: GI bleed, melena, anemia of acute blood loss. ESTIMATED BLOOD LOSS: Minimal. IV sedation per anesthesia. PROCEDURE: After informed consent was obtained, the patient was brought into the endoscopy unit. IV sedation was administered by Anesthesia under continuous monitoring. Initially the Olympus GIF-190 video endoscope was inserted into the mouth. Esophagus intubated without any difficulty. It was gradually advanced into the stomach and duodenum and carefully examined. The bulb and the second part of the duodenum appeared normal, with biopsies taken. The scope at this time was withdrawn to the stomach, adequately insufflated with air, and upon careful examination, mucosa of the antrum, body, cardia and the fundus was significant for some mild punctate erythema in the cardia, fundus and body suggestive of mild portal hypertensive gastropathy. There were also for antral subcentimeter cratered ulcerations which were biopsies. No active bleeding or old blood noted. The scope was then withdrawn into the esophagus. The GE junction was located at 39 cm from the incisors. The esophagus was significant for multiple columns of large varices extending from the GE junction to the midesophagus with severe serial band ligation 13 occurring in a circumferential manner from the distal esophagus to the midesophagus. There were no erosions or ulcerations seen and the patient tolerated the procedure well. IMPRESSION: 1. No active bleeding or old blood. 2. Four nonbleeding antral ulcers without high risk stigmata for bleeding. 3. Large esophageal varices with band ligation 13. 4. Biopsies of the antral ulcers and duodenum. RECOMMENDATIONS: The findings of this examination were discussed with the patient.. Okay for sodium restricted liquid diet. Await pathology from biopsies. Computed tomography scan resulted today with findings of possible hepatic mass and lymphadenopathy, at this time oncology service will be consulted and tumor markers ordered. Ascites was also seen and the patient will have ultrasound guided paracentesis with fluid studies. Further recommendations pending findings.
[2020-08-24 08:37] LABS: HCT 30.5 % (39.6-50.0); HGB 9.8 g/dL (13.0-17.0); MCH 30.2 pg (27.0-32.0); MCHC 32.1 g/dL (32.0-37.0); MCV 94.1 fL (80.0-97.0); Mean Platelet Volume 12.5 fL (9.5-12.2); Platelet Count 119 X 10*3/uL (140-440); RBC 3.24 X 10*6/uL (4.40-5.60); RDW 16.1 % (11.5-14.5); WBC 11.65 X 10*3/uL (4.50-10.00)
[2020-08-24] MEDS: PANTOPRAZOLE 40 MG/10 ML VIAL IV SCH ×2 (09:20→21:17)
--- NOTE | 2020-08-24 10:51 | US ---
EXAMINATION TYPE: US abdomen limited DATE OF EXAM: 08/24/2020 COMPARISON: CT 08/23/20 CLINICAL HISTORY: ascites. Moderate amount of free fluid in abdomen. IMPRESSION: Moderate ascites
--- NOTE | 2020-08-24 12:00 | US ---
Ultrasound-guided paracentesis. DATE OF EXAM: 08/24/2020 CLINICAL HISTORY: Ascites The procedure was discussed with the patient. The risks, complications, benefits, and alternatives we re discussed and any questions were answered. Informed consent was obtained. The patient was placed s upine on the ultrasound table and prepped and draped in the usual sterile fashion. All elements of maximal barrier technique were utilized. Under ultrasound guidance, access into the right lower quadrant was obtained, via the paracentesis catheter system and direct ultrasound guidanc e. Approximately 3.14 liters of straw-colored fluid was removed. Sample sent to pathology for analysis. The patient was stable throughout the procedure and remained stable upon discharge from Department of Radiology. IMPRESSION: Successful paracentesis under ultrasound guidance.
[2020-08-24 14:17] LABS: Appearance,BF Clear; Nucleated Cells, Body Fluid 63 /uL
[2020-08-24 14:18] LABS: RBC, Body Fluid 290 /uL
[2020-08-24 14:44] LABS: Mononuclear WBC,Body Fluid 90 %; Polynuclear WBC,Body Fluid 10 %; Total Cells Counted,Body Fluid 100
[2020-08-24 15:32] LABS: Alpha Fetoprotein, Tumor Mkr 32.4 ng/mL (0.0-7.9)
[2020-08-24 15:33] LABS: Carcinoembryonic Antigen 2.6 ng/mL (0.0-4.9)
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
[2020-08-24] MEDS ORDERED: traMADol 50 MG TAB PO STA (18:00)
[2020-08-24] MEDS: ONDANSETRON 4 MG/2 ML VIAL IVP PRN (22:01)
[2020-08-24 22:11] LABS: Albumin, Fluid Source Paracentesis Fluid
[2020-08-25 05:50] LABS: Basophils % (A) 0 %; Eosinophils # (A) 0.1 k/uL (0-0.7); Eosinophils % (A) 1 %; HCT 30.7 % (39.0-53.0); HGB 10.3 gm/dL (13.0-17.5); Lymphocytes # (A) 0.9 k/uL (1.0-4.8); Lymphocytes % (A) 9 %; MCH 30.9 pg (25.0-35.0); MCHC 33.5 g/dL (31.0-37.0); MCV 92.1 fL (80.0-100.0); Mean Platelet Volume 8.7; Monocytes # (A) 0.7 k/uL (0-1.0); Monocytes % (A) 7 %; Neutrophils # (A) 8.2 k/uL (1.3-7.7); Neutrophils % (A) 80 %; Platelet Count 130 k/uL (150-450); RBC 3.33 m/uL (4.30-5.90); WBC 10.2 k/uL (3.8-10.6)
[2020-08-25 06:07] LABS: ALT 25 U/L (4-49); AST 80 U/L (17-59); African American GFR (CKD) >90 (>60 ml/min/1.73 sqM); Albumin 2.8 g/dL (3.5-5.0); Albumin/Globulin Ratio 0.8; Alkaline Phosphatase 202 U/L (38-126); Anion Gap 3 mmol/L; Blood Urea Nitrogen 21 mg/dL (9-20); Calcium 8.2 mg/dL (8.4-10.2); Carbon Dioxide 25 mmol/L (22-30); Chloride 105 mmol/L (98-107); Globulin 3.7 g/dL; Glucose 115 mg/dL (74-99); INR 1.5 (<1.2); Magnesium 1.7 mg/dL (1.6-2.3); Non-African American GFR(CKD) >90 (>60 ml/min/1.73 sqM); Partial Thromboplastin Time 29.7 sec (22.0-30.0); Potassium 4.2 mmol/L (3.5-5.1); Prothrombin Time 14.7 sec (9.0-12.0); Sodium 133 mmol/L (137-145); Total Bilirubin 1.9 mg/dL (0.2-1.3); Total Protein 6.5 g/dL (6.3-8.2)
[2020-08-25] MEDS: PANTOPRAZOLE 40 MG/10 ML VIAL IV SCH ×2 (07:40→20:06)
[2020-08-25] MEDS: traMADol 50 MG TAB PO PRN ×3 (11:09→23:24)
--- NOTE | 2020-08-25 13:56 | MR ---
EXAMINATION TYPE: MR abdomen wo/w con DATE OF EXAM: 08/25/2020 COMPARISON: CT abdomen and pelvis 2 days ago. HISTORY: pancreatic mass seen on CT Scan CONTRAST: Standard multiplanar, multisequence MRI departmental protocol utilizing 10 mL intravenous Gadavist ga dolinium contrast. Imaging of the abdomen is performed without and with contrast. Imaging focusing o n pancreas. FINDINGS: Exam noted markedly suboptimal as there is artifact of uncertain origin obscuring majority of the upper to midabdomen on all sequences. In addition patient unable to complete the entire sequen chelsy of normal protocol. Pancreas: Suboptimal, nondiagnostic evaluation. Poor visualization of the known peripancreatic mass. Other: Lung bases show no new effusions. There is persistent small size liver with lobulated contour consistent with underlying cirrhosis. There is marked heterogeneous diminished enhancing mass occupyi ng majority of left hepatic lobe felt present. There is a patent nondilated main portal vein. Gallbla dder not seen. Right lateral ascites extends inferiorly similar to recent CT. Splenomegaly redemonstrated. No new renal mass or hydronephrosis. No suspicious small or large bowel dilatation. Visualized osseous structures are intact. IMPRESSION: Markedly suboptimal study, pancreas overall appears within normal limits on recent CT whe re it is way well better visualized. The lesion of concern 2.9 x 2.5 cm mass between the proximal mancera creatic body and the liver likely reflects metastatic lesion or adenopathy from suspected left-sided hepatic lobe hepatocellular carcinoma. Correlate clinically and with alpha-fetoprotein values.
--- NOTE | 2020-08-25 14:04 | P.PN ---
Subjective Progress Note Date: 08/25/20 Principal diagnosis: GI bleed Patient was seen and examined in his room. He denies any abdominal pain, nausea, or vomiting. He is status post upper endoscopy yesterday which revealed no active bleeding or old blood. Four nonbleeding antral ulcers without high risk stigmata for bleeding. Large esophageal varices with band ligation 13. Oncology on consult, they ordered MRI of the abdomen. Objective - Vital Signs Vital signs: Vital Signs Temp 98.3 F 08/25/20 07:00 Pulse 88 08/25/20 07:00 Resp 16 08/25/20 07:00 BP 132/78 08/25/20 07:00 Pulse Ox 95 08/25/20 07:00 Intake & Output 08/24/20 08/25/20 08/25/20 18:59 06:59 18:59 Intake Total 450 Output Total 30 Balance 450 -30 Intake: IV 450 Output: Emesis 30 Other: # Voids 3 2 # Bowel Movements 0 - Exam General appearance: The patient is alert, oriented, appears in no acute distress. HET: Head is normocephalic and atraumatic. Conjunctiva pink. Sclera anicteric. Neck: Supple without lymphadenopathy. Abdomen: Soft, nontender, nondistended with bowel sounds. No guarding or rigidity. Extremities: Normal skin color and turgor. No pedal edema Skin: No rashes, no jaundice Neurological: No focal deficits. Alert and oriented 3. - Labs CBC & Chem 7: 08/25/20 05:12 08/25/20 05:12 Labs: Abnormal Lab Results - Last 24 Hours (Table) 08/24/20 08/24/20 08/25/20 Range/Units 04:41 04:41 05:12 RBC 3.33 L (4.30-5.90) m/uL Hgb 10.3 L (13.0-17.5) gm/dL Hct 30.7 L (39.0-53.0) % RDW 16.0 H (11.5-15.5) % Plt Count 130 L (150-450) k/uL Neutrophils # 8.2 H (1.3-7.7) k/uL Lymphocytes # 0.9 L (1.0-4.8) k/uL PT (9.0-12.0) sec INR (<1.2) Sodium (137-145) mmol/L BUN (9-20) mg/dL Glucose (74-99) mg/dL Calcium (8.4-10.2) mg/dL Total Bilirubin (0.2-1.3) mg/dL AST (17-59) U/L Alkaline Phosphatase (38-126) U/L Albumin (3.5-5.0) g/dL Tumor Marker AFP 32.4 H (0.0-7.9) ng/mL CA 19-9 Antigen 43.1 H (0.0-34.9) U/mL 08/25/20 08/25/20 Range/Units 05:12 05:12 RBC (4.30-5.90) m/uL Hgb (13.0-17.5) gm/dL Hct (39.0-53.0) % RDW (11.5-15.5) % Plt Count (150-450) k/uL Neutrophils # (1.3-7.7) k/uL Lymphocytes # (1.0-4.8) k/uL PT 14.7 H (9.0-12.0) sec INR 1.5 H (<1.2) Sodium 133 L (137-145) mmol/L BUN 21 H (9-20) mg/dL Glucose 115 H (74-99) mg/dL Calcium 8.2 L (8.4-10.2) mg/dL Total Bilirubin 1.9 H (0.2-1.3) mg/dL AST 80 H (17-59) U/L Alkaline Phosphatase 202 H (38-126) U/L Albumin 2.8 L (3.5-5.0) g/dL Tumor Marker AFP (0.0-7.9) ng/mL CA 19-9 Antigen (0.0-34.9) U/mL Assessment and Plan (1) Upper gastrointestinal hemorrhage Narrative/Plan: This is a 60-year-old male with multiple medical comorbidities including hepatitis C of the liver treated in the past, as well as a history of a prior GI bleed who presented with multiple episodes of hematemesis. He was found to have an acute fall in his hemoglobin and reports significant abdominal tenderness after presentation. Unclear etiology of GI bleed differential included variceal bleeding, peptic ulcer disease, gastritis, or other etiology. CT of the abdomen pelvis was also ordered. He is status post upper endoscopy which revealed no active bleeding or old blood, 4 nonbleeding antral ulcers without high risk stigmata for bleeding, large esophageal varices with banding ligation 13. Current Visit: Yes Status: Acute Code(s): K92.2 - GASTROINTESTINAL HEMORRHAGE, UNSPECIFIED SNOMED Code(s): 59418742 (2) Anemia associated with acute blood loss Current Visit: Yes Status: Acute Code(s): D62 - ACUTE POSTHEMORRHAGIC ANEMIA SNOMED Code(s): 458110132 (3) Cirrhosis Narrative/Plan: CT of the abdomen showed new moderate abdominal pelvic ascites. Infiltrative left hepatic lobe mass, concerning for malignancy. Also new. Pancreatic nodule, and retrocrural lymphadenopathy, concerning for metastatic disease. Nonspecific ascending cecal colonic wall thickening. Vision is status post paracentesis with 3.8 L removal with a protein level and fluid albumin consistent with liver disease. Current Visit: Yes Status: Acute Code(s): K74.60 - UNSPECIFIED CIRRHOSIS OF LIVER SNOMED Code(s): 36416338 (4) Esophageal varices Current Visit: Yes Status: Acute Code(s): I85.00 - ESOPHAGEAL VARICES WITHO UT BLEEDING SNOMED Code(s): 26929759 (5) History of type C viral hepatitis Current Visit: Yes Status: Acute Code(s): Z86.19 - PERSONAL HISTORY OF OTHER INFECTIOUS AND PARASITIC DISEASES SNOMED Code(s): 80341094716857 Plan: 1. Supportive care 2. Patient is status post upper endoscopy 3. Advance to full liquid diet 4. Continue Protonix 40 mg twice a day 5. Oncology consulted, appreciate their recommendations 6. MRI ordered per oncology, pending results Thank you for this consultation, we will continue to follow Dr. Ahumada I agree with the dictator's note, documented as a scribe by Margot Zamora.
--- NOTE | 2020-08-25 14:51 | P.PN ---
Subjective Progress Note Date: 08/25/20 Principal diagnosis: Pancreativ Mass Awaiting MRI this am Objective - Vital Signs Vital signs: Vital Signs Temp 98.3 F 08/25/20 07:00 Pulse 88 08/25/20 07:00 Resp 16 08/25/20 07:00 BP 132/78 08/25/20 07:00 Pulse Ox 95 08/25/20 07:00 Intake & Output 08/24/20 08/25/20 08/25/20 18:59 06:59 18:59 Intake Total 450 Output Total 30 Balance 450 -30 Intake: IV 450 Output: Emesis 30 Other: # Voids 3 2 2 # Bowel Movements 0 - Exam - Constitutional General appearance: cooperative, no acute distress - EENT Eyes: EOMI, PERRLA ENT: NA/AT - Neck Neck: normal ROM - Respiratory Respiratory: bilateral: diminished - Cardiovascular Rhythm: regular - Gastrointestinal General gastrointestinal: distended, hepatomegaly, soft - Neurologic Neurologic: CNII-XII intact - Musculoskeletal Musculoskeletal: generalized weakness - Psychiatric Psychiatric: A&O x's 3, appropriate affect - Labs CBC & Chem 7: 08/25/20 05:12 08/25/20 05:12 Labs: Abnormal Lab Results - Last 24 Hours (Table) 08/24/20 08/24/20 08/25/20 Range/Units 04:41 04:41 05:12 RBC 3.33 L (4.30-5.90) m/uL Hgb 10.3 L (13.0-17.5) gm/dL Hct 30.7 L (39.0-53.0) % RDW 16.0 H (11.5-15.5) % Plt Count 130 L (150-450) k/uL Neutrophils # 8.2 H (1.3-7.7) k/uL Lymphocytes # 0.9 L (1.0-4.8) k/uL PT (9.0-12.0) sec INR (<1.2) Sodium (137-145) mmol/L BUN (9-20) mg/dL Glucose (74-99) mg/dL Calcium (8.4-10.2) mg/dL Total Bilirubin (0.2-1.3) mg/dL AST (17-59) U/L Alkaline Phosphatase (38-126) U/L Albumin (3.5-5.0) g/dL Tumor Marker AFP 32.4 H (0.0-7.9) ng/mL CA 19-9 Antigen 43.1 H (0.0-34.9) U/mL 08/25/20 08/25/20 Range/Units 05:12 05:12 RBC (4.30-5.90) m/uL Hgb (13.0-17.5) gm/dL Hct (39.0-53.0) % RDW (11.5-15.5) % Plt Count (150-450) k/uL Neutrophils # (1.3-7.7) k/uL Lymphocytes # (1.0-4.8) k/uL PT 14.7 H (9.0-12.0) sec INR 1.5 H (<1.2) Sodium 133 L (137-145) mmol/L BUN 21 H (9-20) mg/dL Glucose 115 H (74-99) mg/dL Calcium 8.2 L (8.4-10.2) mg/dL Total Bilirubin 1.9 H (0.2-1.3) mg/dL AST 80 H (17-59) U/L Alkaline Phosphatase 202 H (38-126) U/L Albumin 2.8 L (3.5-5.0) g/dL Tumor Marker AFP (0.0-7.9) ng/mL CA 19-9 Antigen (0.0-34.9) U/mL Assessment and Plan (1) Pancreatic mass Current Visit: Yes Status: Acute Code(s): K86.89 - OTHER SPECIFIED DISEASES OF PANCREAS SNOMED Code(s): 946675420 (2) Normocytic anemia due to blood loss Current Visit: Yes Status: Acute Code(s): D50.0 - IRON DEFICIENCY ANEMIA SECONDARY TO BLOOD LOSS (CHRONIC) SNOMED Code(s): 338035157 (3) Esophageal varices Current Visit: Yes Status: Acute Code(s): I85.00 - ESOPHAGEAL VARICES WITHOUT BLEEDING SNOMED Code(s): 86691065 (4) History of type C viral hepatitis Current Visit: Yes Status: Acute Code(s): Z86.19 - PERSONAL HISTORY OF OTHER INFECTIOUS AND PARASITIC DISEASES SNOMED Code(s): 66117551982716 Plan: Assessment and recommendations: GI Bleed: - GI is following and patient is status post GI evaluation - Iron SUpplementation - Monitor CBC Pancreatic Mass: - MRI ordered and scheduled for this am Physician Attest: I have completed the full history and physical and agree with above dictation, dictated as a scribe.
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
[2020-08-26] MEDS: PANTOPRAZOLE 40 MG/10 ML VIAL IV SCH ×2 (08:35→20:07)
[2020-08-26] MEDS: traMADol 50 MG TAB PO PRN ×2 (08:44→18:21)
--- NOTE | 2020-08-26 13:24 | P.PN ---
Subjective Progress Note Date: 08/26/20 Principal diagnosis: GI bleed Patient seen and examined lying in bed. He reports some right upper quadrant pain states it was worse earlier this morning, had a bowel movement at 7:30 which he reports as brown with no blood or black stool. He denies any nausea or vomiting. Patient had MRI of abdomen which showed markedly suboptimal study, pancreas overall appears within normal limits on recent CT we are is way well better visualized. The lesion of concern 2.9 x 2.5 cm mass between the proximal pancreatic body in the liver likely reflects metastatic lesion or adenopathy from suspected left-sided hepatic lobe hepatocellular carcinoma. Objective - Vital Signs Vital signs: Vital Signs Temp 97.1 F L 08/26/20 07:00 Pulse 63 08/26/20 08:00 Resp 17 08/26/20 08:00 BP 126/75 08/26/20 07:00 Pulse Ox 96 08/26/20 07:00 Intake & Output 08/25/20 08/26/20 08/26/20 18:59 06:59 18:59 Intake Total 280 Balance 280 Intake: Oral 280 Other: Voiding Method Toilet # Voids 2 1 1 # Bowel Movements 1 - Exam General appearance: The patient is alert, oriented, appears in no acute distress. HET: Head is normocephalic and atraumatic. Conjunctiva pink. Sclera anicteric. Neck: Supple without lymphadenopathy. Abdomen: Soft, right upper quadrant tenderness, nondistended with bowel sounds. No guarding or rigidity. Extremities: Normal skin color and turgor. No pedal edema Skin: No rashes, no jaundice Neurological: No focal deficits. Alert and oriented 3. - Labs CBC & Chem 7: 08/25/20 05:12 08/25/20 05:12 Assessment and Plan (1) Upper gastrointestinal hemorrhage Narrative/Plan: This is a 60-year-old male with multiple medical comorbidities including hepatitis C of the liver treated in the past, as well as a history of a prior GI bleed who presented with multiple episodes of hematemesis. He was found to have an acute fall in his hemoglobin and reports significant abdominal tenderness after presentation. Unclear etiology of GI bleed differential included variceal bleeding, peptic ulcer disease, gastritis, or other etiology. CT of the abdomen pelvis was also ordered. He is status post upper endoscopy which revealed no active bleeding or old blood, 4 nonbleeding antral ulcers without high risk stigmata for bleeding, large esophageal varices with banding ligation 13. Current Visit: Yes Status: Acute Code(s): K92.2 - GASTROINTESTINAL HEMORRHAGE, UNSPECIFIED SNOMED Code(s): 99884233 (2) Anemia associated with acute blood loss Current Visit: Yes Status: Acute Code(s): D62 - ACUTE POSTHEMORRHAGIC ANEMIA SNOMED Code(s): 006121687 (3) Cirrhosis Narrative/Plan: CT of the abdomen showed new moderate abdominal pelvic ascites. Infiltrative left hepatic lobe mass, concerning for malignancy. Also new. Pancreatic nodule, and retrocrural lymphadenopathy, concerning for metastatic disease. Nonspecific ascending cecal colonic wall thickening. Vision is status post paracentesis with 3.8 L removal with a protein level and fluid albumin consistent with liver disease. Current Visit: Yes Status: Acute Code(s): K74.60 - UNSPECIFIED CIRRHOSIS OF LIVER SNOMED Code(s): 61354115 (4) Esophageal varices Current Visit: Yes Status: Acute Code(s): I85.00 - ESOPHAGEAL VARICES WITHOUT BLEEDING SNOMED Code(s): 02004831 (5) History of type C viral hepatitis Current Visit: Yes Status: Acute Code(s): Z86.19 - PERSONAL HISTORY OF OTHER INFECTIOUS AND PARASITIC DISEASES SNOMED Code(s): 99913373895013 Plan: 1. Supportive care 2. Patient is status post upper endoscopy 3. Continue full liquid diet 4. Continue Protonix 40 mg twice a day 5. Oncology consulted, appreciate their recommendations 6. MRI ordered per oncology Thank you for this consultation, we will continue to follow Dr. Ahumada I agree with the dictator's note, documented as a scribe by Margot Zamora.
[2020-08-26] MEDS ORDERED: RX INFO: IV CONTRAST WAS GIVEN 1 EACH MISC MISCELLANE PRN (17:58)
--- NOTE | 2020-08-26 18:01 | P.PN ---
Subjective Progress Note Date: 08/26/20 Principal diagnosis: Pancreativ Mass Non-diagnstic GI Eval, Lesion suspicious for metastaic lesion. Further diagnstic work-up and tissue will be needed. WIll obtain CT chest to further evaluate. Objective - Vital Signs Vital signs: Vital Signs Temp 98.3 F 08/26/20 14:44 Pulse 94 08/26/20 14:44 Resp 18 08/26/20 14:44 BP 111/75 08/26/20 14:44 Pulse Ox 95 08/26/20 14:44 Intake & Output 08/25/20 08/26/20 08/26/20 18:59 06:59 18:59 Intake Total 280 Balance 280 Intake: Oral 280 Other: Voiding Method Toilet # Voids 2 1 3 # Bowel Movements 1 - Exam - Constitutional General appearance: cooperative, no acute distress - EENT Eyes: EOMI, PERRLA ENT: NA/AT - Neck Neck: normal ROM - Respiratory Respiratory: bilateral: diminished - Cardiovascular Rhythm: regular - Gastrointestinal General gastrointestinal: distended, hepatomegaly, soft - Neurologic Neurologic: CNII-XII intact - Musculoskeletal Musculoskeletal: generalized weakness - Psychiatric Psychiatric: A&O x's 3, appropriate affect - Labs CBC & Chem 7: 08/25/20 05:12 08/25/20 05:12 Assessment and Plan (1) Pancreatic mass Current Visit: Yes Status: Acute Code(s): K86.89 - OTHER SPECIFIED DISEASES OF PANCREAS SNOMED Code(s): 479082133 (2) Normocytic anemia due to blood loss Current Visit: Yes Status: Acute Code(s): D50.0 - IRON DEFICIENCY ANEMIA SECONDARY TO BLOOD LOSS (CHRONIC) SNOMED Code(s): 331069711 (3) Esophageal varices Current Visit: Yes Status: Acute Code(s): I85.00 - ESOPHAGEAL VARICES WITHOUT BLEEDING SNOMED Code(s): 82702063 (4) History of type C viral hepatitis Current Visit: Yes Status: Acute Code(s): Z86.19 - PERSONAL HISTORY OF OTHER INFECTIOUS AND PARASITIC DISEASES SNOMED Code(s): 85524846260556 Plan: Assessment and recommendations: GI Bleed: - GI is following and patient is status post GI evaluation - Iron SUpplementation - Monitor CBC Pancreatic Mass: - MRI reviewed - CT chest to further evaluate for primary lesion GI eval neg Physician Attest: I have completed the full history and physical and agree with above dictation, dictated as a scribe.
--- NOTE | 2020-08-26 19:53 | CT ---
EXAMINATION TYPE: CT chest w con DATE OF EXAM: 08/26/2020 COMPARISON: CT abdomen 08/23/2020. HISTORY: Staging for cancer. CT DLP: 358.4 mGycm Automated exposure control for dose reduction was used. TECHNIQUE: CT scan of the chest is performed with IV Contrast, patient injected with 100ml mL of Isovue 300. DE P Images are created on CT scanner and reviewed. 3D reconstructed images are created on an [employer] workstation and reviewed. FINDINGS: LUNGS: The lungs are grossly clear, there is no concerning parenchymal mass or nodule identified. T here is no pleural effusion or pneumothorax seen. The tracheobronchial tree is patent. MEDIASTINUM: There are no greater than 1 cm hilar or mediastinal lymph nodes. No pericardial effusi on is seen. OSSEOUS STRUCTURES: There is subacute/chronic appearing mild T5 compression fracture. There is chroni c appearing T8 and T9 anterior wedge deformity. Chronic T8 posterior rib fracture. OTHER: Limited evaluation of the upper abdomen demonstrate partially imaged known hepatic cirrhosis with infiltrative mass at small volume ascites. There is also mesenteric zehra appearance, consistent with edema. There is moderate wall thickening of the distal esophagus with esophageal varices seen. IMPRESSION: Subacute/chronic appearing mild T5 compression fracture. Recommend clinical correlation. Nonspecific moderate wall thickening of the distal esophagus in the setting of esophageal varices. Otherwise no acute cardiopulmonary abnormality or evidence to suggest thoracic metastatic disease. Redemonstrated hepatic mass with persistent small volume ascites.
--- NOTE | 2020-08-26 22:49 | P.PN ---
Subjective From records This is a 60-year-old patient of Dr. Mcallister. Patient is hard of hearing can do some lip reading. Chronic stable medical conditions include GERD, hard of hearing, osteoarthritis, rheumatoid arthritis, cirrhosis from hepatitis C from from exposure, bloody right eye vision from prior injury. Patient now presents with 7 days of blood in the stool. And he says he vomited at least a pint of blood yesterday. Does take a baby aspirin daily. Abdomen feels a bit distended. He did: See his family doctor last Sunday. Does feel tired and rundown. No fever no chills EGD: 4 nonbleeding antral ulcers without high risk stigmata for bleeding. Large esophageal varices with band ligation. Today: Patient on clear liquid diet. Had bowel movement with very little blood in the same. Subjective: 08/26/2020 This is a pleasant 60 years old male with multiple comorbidity presents with upper GI bleed secondary to esophageal varices status post EGD found for nonbleeding peptic ulcers with large esophageal varices status post band ligation. Also with decompensated liver cirrhosis status post thoracocentesis previously. Currently covered with Protonix twice daily. Also on MRI of the liver with and without contrast showing a mass of 2.9 x 2.5 cm between the liver and pancreas thought to be metastatic disease versus lymphadenopathy from hepatocellular carcinoma associated with elevated tumor marker CA 199 at 43 and increased alpha-fetoprotein of 32. Patient is followed closely by GI and oncology team. Hemoglobin is stable at 10.3. Bilirubin slightly elevated as well as liver enzymes. Today patient stated he has little eaten because he feels full early. He has some nausea but no vomiting, he has RUQ pain and tenderness/10 in severity he had a small bowel movement this morning but no blood and no diarrhea. CT of the chest no evidence of metastasis Note: Patient is very hard of hearing and he reads lips Review of systems CONSTITUTIONAL: No fever, no malaise, no fatigue. HEENT: No recent visual problems or hearing problems. Denied any sore throat. CARDIOVASCULAR: No orthopnea, PND, no palpitations, no syncope. PULMONARY: No shortness of breath, no cough, no hemoptysis. GASTROINTESTINAL: No diarrhea, no nausea, no vomiting, no abdominal pain. Normoactive bowel sounds. Active Medications Generic Name Dose Route Start Last Admin Trade Name Freq PRN Reason Stop Dose Admin Miscellaneous Information 1 each 08/26/20 17:58 Rx Info: Iv Contrast Was Given 1 Each Mis MISCELLANE 08/28/20 17:58 DAILY PRN Per Protocol Naloxone HCl 0.2 mg 08/23/20 05:40 Naloxone 0.4 Mg/Ml 1 Ml Vial IV Q2M PRN Opioid Reversal Ondansetron HCl 4 mg 08/23/20 05:40 08/24/20 22:01 Ondansetron 4 Mg/2 Ml Vial IVP 4 mg Q8HR PRN Administration Nausea And Vomiting Pantoprazole Sodium 40 mg 08/23/20 09:00 08/26/20 20:07 Pantoprazole 40 Mg/10 Ml Vial IV 40 mg BID [place] Administration Tramadol HCl 50 mg 08/25/20 09:45 08/26/20 18:21 Tramadol 50 Mg Tab PO 50 mg QID PRN Administration Pain Objective - Vital Signs Vital signs: Vital Signs Temp 97.1 F L 08/26/20 07:00 Pulse 63 08/26/20 08:00 Resp 17 08/26/20 08:00 BP 126/75 08/26/20 07:00 Pulse Ox 96 08/26/20 07:00 Intake & Output 08/25/20 08/26/20 08/26/20 18:59 06:59 18:59 Intake Total 280 Balance 280 Intake: Oral 280 Other: Voiding Method Toilet # Voids 2 1 1 # Bowel Movements 1 - Exam GENERAL: The patient is alert and oriented x3, not in any acute distress. Well developed, well nourished. HEENT: Pupils are round and equally reacting to light. EOMI. No scleral icterus. No conjunctival pallor. Normocephalic, atraumatic. No pharyngeal erythema. No thyromegaly. CARDIOVASCULAR: S1 and S2 present. No murmurs, rubs, or gallops. PULMONARY: Chest is clear to auscultation, no wheezing or crackles. -ABDOMEN: Soft, RUQ tenderness with no rebound, nondistended, normoactive bowel sounds. No palpable organomegaly. MUSCULOSKELETAL: No joint swelling or deformity. EXTREMITIES: No cyanosis, clubbing, or pedal edema. NEUROLOGICAL: Gross neurological examination did not reveal any focal deficits. SKIN: No rashes. no petechiae. - Labs CBC & Chem 7: 08/25/20 05:12 08/25/20 05:12 Assessment and Plan Assessment: -Most likely liver metastases rather than pancreatic mass with elevated tumor markers CA 199 and AFP -Upper GI bleed secondary to esophageal varices, EGD: 4 nonbleeding PU and large esophageal varices status post band ligation -Acute blood loss anemia secondary to above -Decompensated cirrhosis with ascites status post thoracocentesis -Splenomegaly from prior computed tomography scan -Moderate size hiatal hernia -GERD -Very hard of hearing. Patient can do some lip reading -Liver cirrhosis from underlying hepatitis C diagnosed in 1987. Patient does follow with GI Plan: This is a pleasant 60 years old male who presents with esophageal varices and bleeding, cirrhosis and liver metastases. GI oncology team on the case. Continue with Protonix. Patient also with elevated tumor markers and he will discuss with oncology team about their final recommendation Labs and medication were reviewed.. Continue same treatment. Continue with symptomatic treatment. Resume home medication. Monitor lytes and vitals. DVT and GI prophylaxis. Further recommendationsas per clinical course of the patient DVT prophylaxis: No heparin in view of GI bleed GI Prophylaxis: Ppi Prognosis is guarded
[2020-08-27] MEDS: traMADol 50 MG TAB PO PRN (07:48)
[2020-08-27] MEDS: PANTOPRAZOLE 40 MG/10 ML VIAL IV SCH (07:48)
--- NOTE | 2020-08-27 10:14 | P.PN ---
Subjective Progress Note Date: 08/27/20 Principal diagnosis: GI bleed Patient is seen and examined lying in bed. He states he still has some abdominal distention and discomfort. He states he had a bowel movement this morning but it was hard and he feels constipated. He states he did vomit one time yesterday, states it was bile no dark emesis or bright red blood. Also denies any black stool or blood in his stool this morning. States he has a decreased appetite. Ascitic fluid cytology is negative for malignant cells. Oncology is on consult awaiting their recommendations. Objective - Vital Signs Vital signs: Vital Signs Temp 98.0 F 08/27/20 07:00 Pulse 72 08/27/20 08:00 Resp 20 08/27/20 08:00 BP 132/70 08/27/20 07:00 Pulse Ox 95 08/27/20 07:00 Intake & Output 08/26/20 08/27/20 08/27/20 18:59 06:59 18:59 Intake Total 248 200 Balance 248 200 Intake: Oral 248 200 Other: Voiding Method Toilet Toilet Toilet # Voids 3 1 - Exam General appearance: The patient is alert, oriented, appears in no acute distress. HET: Head is normocephalic and atraumatic. Conjunctiva pink. Sclera anicteric. Neck: Supple without lymphadenopathy. Abdomen: Soft, right upper quadrant tenderness, nondistended with bowel sounds. No guarding or rigidity. Extremities: Normal skin color and turgor. No pedal edema Skin: No rashes, no jaundice Neurological: No focal deficits. Alert and oriented 3. - Labs CBC & Chem 7: 08/25/20 05:12 08/25/20 05:12 Assessment and Plan (1) Upper gastrointestinal hemorrhage Narrative/Plan: This is a 60-year-old male with multiple medical comorbidities including hepatitis C of the liver treated in the past, as well as a history of a prior GI bleed who presented with multiple episodes of hematemesis. He was found to have an acute fall in his hemoglobin and reports significant abdominal tenderness after presentation. Unclear etiology of GI bleed differential included variceal bleeding, peptic ulcer disease, gastritis, or other etiology. CT of the abdomen pelvis was also ordered. He is status post upper endoscopy which revealed no active bleeding or old blood, 4 nonbleeding antral ulcers without high risk stigmata for bleeding, large esophageal varices with banding ligation 13. Current Visit: Yes Status: Acute Code(s): K92.2 - GASTROINTESTINAL HEMORRHAGE, UNSPECIFIED SNOMED Code(s): 61641328 (2) Anemia associated with acute blood loss Current Visit: Yes Status: Acute Code(s): D62 - ACUTE POSTHEMORRHAGIC ANEMIA SNOMED Code(s): 631571426 (3) Cirrhosis Narrative/Plan: CT of the abdomen showed new moderate abdominal pelvic ascites. Infiltrative left hepatic lobe mass, concerning for malignancy. Also new. Pancreatic nodule, and retrocrural lymphadenopathy, concerning for metastatic disease. Nonspecific ascending cecal colonic wall thickening. Vision is status post paracentesis with 3.8 L removal with a protein level and fluid albumin consistent with liver disease. Current Visit: Yes Status: Acute Code(s): K74.60 - UNSPECIFIED CIRRHOSIS OF LIVER SNOMED Code(s): 81533972 (4) Esophageal varices Current Visit: Yes Status: Acute Code(s): I85.00 - ESOPHAGEAL VARICES WITHOUT BLEEDING SNOMED Code(s): 23429019 (5) History of type C viral hepatitis Current Visit: Yes Status: Acute Code(s): Z86.19 - PERSONAL HISTORY OF OTHER INFECTIOUS AND PARASITIC DISEASES SNOMED Code(s): 54275937425423 (6) Pancreatic mass Narrative/Plan: Oncology following patient closely Current Visit: Yes Status: Acute Code(s): K86.89 - OTHER SPECIFIED DISEASES OF PANCREAS SNOMED Code(s): 351569681 Plan: 1. Supportive care 2. Will add Aldactone 25 mg daily and Lasix 20 mg daily 3. Patient is status post upper endoscopy with esophageal varices band ligation 4. Continue full liquid diet, advance diet as tolerated 5. Continue Protonix 40 mg twice a day 6. Oncology consulted, looks like plan is for outpatient liver biopsy 7. MiraLAX ordered Thank you for this consultation, we will continue to follow Dr. Ahumada I agree with the dictator's note, documented as a scribe by Margot Zamora.
[2020-08-27] MEDS ORDERED: polyethylene glycoL 3350 17 GM POWD.PACK PO SCH (10:15)
--- NOTE | 2020-08-27 12:59 | P.PN ---
Subjective Progress Note Date: 08/27/20 Principal diagnosis: Pancreativ Mass Awaiting Cytology from paracentesis. If this is non diagnostic will plan for CT guided biopsy of liver mass. We can schedule this as outpatient prior to discharge to not delay further diagnosis. He van follow-up with Dr. Larkin in 2 weeks. Objective - Vital Signs Vital signs: Vital Signs Temp 98.0 F 08/27/20 07:00 Pulse 72 08/27/20 08:00 Resp 20 08/27/20 08:00 BP 132/70 08/27/20 07:00 Pulse Ox 95 08/27/20 07:00 Intake & Output 08/26/20 08/27/20 08/27/20 18:59 06:59 18:59 Intake Total 248 200 Balance 248 200 Intake: Oral 248 200 Other: Voiding Method Toilet Toilet Toilet # Voids 3 1 - Exam - Constitutional General appearance: cooperative, no acute distress - EENT Eyes: EOMI, PERRLA ENT: NA/AT - Neck Neck: normal ROM - Respiratory Respiratory: bilateral: diminished - Cardiovascular Rhythm: regular - Gastrointestinal General gastrointestinal: distended, hepatomegaly, soft - Neurologic Neurologic: CNII-XII intact - Musculoskeletal Musculoskeletal: generalized weakness - Psychiatric Psychiatric: A&O x's 3, appropriate affect - Labs CBC & Chem 7: 08/25/20 05:12 08/25/20 05:12 Assessment and Plan (1) Pancreatic mass Current Visit: Yes Status: Acute Code(s): K86.89 - OTHER SPECIFIED DISEASES OF PANCREAS SNOMED Code(s): 011878642 (2) Normocytic anemia due to blood loss Current Visit: Yes Status: Acute Code(s): D50.0 - IRON DEFICIENCY ANEMIA SECONDARY TO BLOOD LOSS (CHRONIC) SNOMED Code(s): 878865231 (3) Esophageal varices Current Visit: Yes Status: Acute Code(s): I85.00 - ESOPHAGEAL VARICES WITHOUT BLEEDING SNOMED Code(s): 97972612 (4) History of type C viral hepatitis Current Visit: Yes Status: Acute Code(s): Z86.19 - PERSONAL HISTORY OF OTHER INFECTIOUS AND PARASITIC DISEASES SNOMED Code(s): 66895767219913 Plan: Assessment and recommendations: GI Bleed: - GI is following and patient is status post GI evaluation - Iron SUpplementation - Monitor CBC Pancreatic Mass: - MRI reviewed - CT chest to further evaluate for primary lesion GI eval neg Await Cytology and scheule outpatient biopsy of liver prior to discharge, will need for molecular testing in picture of possible metastatic cancer Patient to remain off of aspirin in anticipation of biopsy on next week, will see Dr. Larkin after this. Spoke to Julissa in Radiology and order will be faxed for this. Ok for discharge from onc, follow-up with Dr. Larkin 2 weeks.
[2020-08-27 14:35] VITALS: PULSE 86; RESP 17; TEMP 98.1
[2020-08-27] MEDS ORDERED: SPIRONOLACTONE 25 MG TAB PO STA (14:40)
[2020-08-27] MEDS ORDERED: FUROSEMIDE 20 MG TAB PO STA (14:42)
[2020-08-27 15:49] VITALS: BP 124/80
--- NOTE | 2020-08-28 01:28 | P.DS ---
Providers Date of admission: 08/23/20 14:55 Attending physician: Erick Berry Consults: 08/23/20 05:40 Consult Physician Routine Consulting Provider: Conrad Ahumada Consult Reason/Comments: ugib,?varices? Do you want consulting provider notified?: Yes 08/24/20 08:00 Consult Physician Urgent Consulting Provider: Trent Larkin Consult Reason/Comments: abnormal CT concerning for malignancy Do you want consulting provider notified?: Yes Primary care physician: Felipe Mcallister Hospital Course: Diagnoses: -Left liver mass, suspicious for metastases rather than pancreatic mass with elevated tumor markers CA 199 and AFP, patient and aware and scheduled for biopsy of the liver in one week -Upper GI bleed secondary to esophageal varices, EGD: 4 nonbleeding peptic ulcers and large esophageal varices status post band ligation -Acute blood loss anemia secondary to above -Decompensated cirrhosis with ascites status post thoracocentesis -Splenomegaly from prior computed tomography scan -Moderate size hiatal hernia -GERD -Very hard of hearing. Patient can do some lip reading -Liver cirrhosis from underlying hepatitis C diagnosed in 1987. Patient does follow with GI -Very hard of hearing, able to read lips Hospital course: This is a pleasant 60 years old male with multiple comorbidity presents with upper GI bleed secondary to esophageal varices status post EGD found for nonbleeding peptic ulcers with large esophageal varices status post band ligation. Also with decompensated liver cirrhosis status post thoracocentesis previously. Currently covered with Protonix twice daily. Also on MRI of the liver with and without contrast showing a mass of 2.9 x 2.5 cm between the liver and pancreas thought to be metastatic disease versus lymphadenopathy from hepatocellular carcinoma associated with elevated tumor marker CA 199 at 42 and increased alpha-fetoprotein of 32. Patient is followed closely by GI and oncology team. Oncology team recommended liver biopsy which can be done as an outpatient after holding aspirin, appointment for liver biopsies made for the patient on 09/02 at 9 AM and he is aware. GI team recommended to rule out small dose of Lasix and Aldactone, 1 dose of each is provided for the patient transferred for discharge and he tolerated the doses well on the day of discharge he is back to his baseline, alert and awake, no chest pain or dyspnea. No abdominal pain, no nausea vomiting, tolerates diet well. No change in urine or bowel habits. No fever Patient was cleared for discharge by oncology and GI team Problems and management plan were discussed with the patient and he verbalized understanding and acceptance Patient was found stable and can be discharged home however he needs follow-up as an outpatient. Patient was instructed to follow up with PCP Dr. Mcallister within one week and patient agrees Also patient was instructed to follow up with Dr. larkin oncologist and velocci from GI on 09/13 and he agrees with these appointment dates Also I called his PCP Dr. Mcallister and discussed the case with him including the need for liver biopsy and he kindly took note of these Physical exam Gen: patient is a AAOx3, no distress CVS: S1-S2, RRR, no murmur Lungs: B/L CTA, no wheezing Abdomen: soft, no distention, no tenderness, positive bowel sounds Extremity: no leg edema or induration Time spent more than 35 minutes Patient Condition at Discharge: Fair Plan - Discharge Summary Discharge Rx Participant: No New Discharge Prescriptions: New Furosemide [Lasix] 20 mg PO DAILY #30 tab traMADol HCl [Ultram] 50 mg PO TID #21 tab Spironolactone [Aldactone] 25 mg PO DAILY #30 tab Pantoprazole Sodium [Protonix] 20 mg PO DAILY #30 tablet. Continue Multivit-Min/FA/Lycopen/Lutein [Centrum Silver Men Tablet] 1 tab PO DAILY Magnesium 200 mg PO DAILY Vitamin E 1,000 unit PO DAILY Ferrous Sulfate [Iron (65 MG Elemental)] 325 mg PO DAILY Cholecalciferol [Vitamin D3 (25 Mcg = 1000 Iu)] 25 mcg PO DAILY Calcium Carbonate [Calcium] 600 mg PO DAILY Discontinued Aspirin EC [Ecotrin] 325 mg PO DAILY Discharge Medication List Calcium Carbonate [Calcium] 600 mg PO DAILY 06/26/20 [History] Cholecalciferol [Vitamin D3 (25 Mcg = 1000 Iu)] 25 mcg PO DAILY 06/26/20 [ History] Ferrous Sulfate [Iron (65 MG Elemental)] 325 mg PO DAILY 06/26/20 [History] Magnesium 200 mg PO DAILY 06/26/20 [History] Multivit-Min/FA/Lycopen/Lutein [Centrum Silver Men Tablet] 1 tab PO DAILY 06/26/20 [History] Vitamin E 1,000 unit PO DAILY 06/26/20 [History] Furosemide [Lasix] 20 mg PO DAILY #30 tab 08/27/20 [Rx] Pantoprazole Sodium [Protonix] 20 mg PO DAILY #30 tablet. 08/27/20 [Rx] Spironolactone [Aldactone] 25 mg PO DAILY #30 tab 08/27/20 [Rx] traMADol HCl [Ultram] 50 mg PO TID #21 tab 08/27/20 [Rx] Follow up Appointment(s)/Referral(s): Trent Larkin MD [STAFF PHYSICIAN] - 09/13/20 4:30 pm Felipe Mcallister MD [Primary Care Provider] - 09/01/20 10:30 am Conrad Ahumada MD [STAFF PHYSICIAN] - 09/13/20 9:30 am Activity/Diet/Wound Care/Special Instructions: Liver biopsy and parcentesis scheduled for at 9 am (September 02, 2020). -no aspirin ( hold aspirin till your liver biopsy and resume it thereafter as per your doctor recommendation) -hospital will call you prior to procedure day to confirm date and time -plan to be here until 2-3 pm. we recommend small frequent diet activity is restricted till you see your doctor Discharge Disposition: HOME WITH HOME HEALTH SERVICES
[2020-08-28] MEDS ORDERED: SPIRONOLACTONE 25 MG TAB PO SCH (09:00)
[2020-08-28] MEDS ORDERED: FUROSEMIDE 20 MG TAB PO SCH (09:00)
== END 2020-08-27 16:06 | disposition home health service (06) | DRG 432 ==
LOC: EC 04:23 → 4SSUR 05:41 → 6NMEDSUR 06:27 → OBSVTOIN 14:55
PROVIDERS: ADMIT Hospitalist; ATTEND Hospitalist
PROC: 06L38CZ Occlusion of Esophageal Vein with Extraluminal Device, Via Natural or Artificial Opening Endoscopic (ICD-10-PCS; principal; 2020-08-24 12:00)
PROC: 0DB98ZX Excision of Duodenum, Via Natural or Artificial Opening Endoscopic, Diagnostic (ICD-10-PCS; principal; 2020-08-24 12:00)
PROC: 0DB78ZX Excision of Stomach, Pylorus, Via Natural or Artificial Opening Endoscopic, Diagnostic (ICD-10-PCS; principal; 2020-08-24 12:00)
PROC: 0W9G3ZZ Drainage of Peritoneal Cavity, Percutaneous Approach (ICD-10-PCS; 2020-08-24 12:00)
DX: K74.69 Other cirrhosis of liver (principal); I85.11 Secondary esophageal varices with bleeding; K76.6 Portal hypertension; R18.8 Other ascites; D62 Acute posthemorrhagic anemia; C78.7 Secondary malignant neoplasm of liver and intrahepatic bile duct; R16.2 Hepatomegaly with splenomegaly, not elsewhere classified; C80.1 Malignant (primary) neoplasm, unspecified; M06.9 Rheumatoid arthritis, unspecified; Z20.822 Contact with and (suspected) exposure to COVID-19; K21.9 Gastro-esophageal reflux disease without esophagitis; B19.20 Unspecified viral hepatitis C without hepatic coma; Z87.81 Personal history of (healed) traumatic fracture; H91.90 Unspecified hearing loss, unspecified ear; M19.90 Unspecified osteoarthritis, unspecified site; K44.9 Diaphragmatic hernia without obstruction or gangrene; K59.00 Constipation, unspecified; K25.9 Gastric ulcer, unspecified as acute or chronic, without hemorrhage or perforation; K86.9 Disease of pancreas, unspecified; Z79.82 Long term (current) use of aspirin; Z79.899 Other long term (current) drug therapy; Z90.49 Acquired absence of other specified parts of digestive tract; Z87.11 Personal history of peptic ulcer disease; Z98.890 Other specified postprocedural states; Z87.828 Personal history of other (healed) physical injury and trauma; Z87.891 Personal history of nicotine dependence; Z88.6 Allergy status to analgesic agent; Z88.0 Allergy status to penicillin; Z81.1 Family history of alcohol abuse and dependence
CPT/HCPCS: 36415; 43239; 43244; 49083; 71260; 74177; 74183; 76705; 80053; 82042; 82105; 82378; 82550; 82553; 83690; 83735; 84157; 84484; 85025; 85027; 85610; 85730; 86301; 87635; 88108; 88305; 88341; 88342; 89050; 96374; 96375; 99285

== ENCOUNTER 2020-09-07 13:09 | Emergency (ER) | payer MEDICARE, OTHER ==
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
[2020-09-07 15:14] LABS: Appearance,Urine Clear (Clear); Bilirubin,Urine Negative (Negative); Blood,Urine Negative (Negative); Color,Urine Yellow; Glucose,Urine (UA) Negative (Negative); Ketones,Urine Negative (Negative); Leukocyte Esterase,Urine Negative (Negative); Nitrite,Urine Negative (Negative); PH, Urine 5.5 (5.0-8.0); Protein,Urine Negative (Negative); Specific Gravity,Urine 1.008 (1.001-1.035); Urobilinogen,Urine <2.0 mg/dL (<2.0)
[2020-09-07 15:48] LABS: Anisocytosis Slight; Basophils # (A) 0.1 k/uL (0-0.2); Basophils % (A) 0 %; Eosinophils # (A) 0.2 k/uL (0-0.7); Eosinophils % (A) 1 %; HCT 40.2 % (39.0-53.0); Hypochromasia Slight; Lymphocytes % (A) 6 %; MCH 30.1 pg (25.0-35.0); MCHC 33.2 g/dL (31.0-37.0); MCV 90.6 fL (80.0-100.0); Mean Platelet Volume 7.7; Monocytes # (A) 1.1 k/uL (0-1.0); Monocytes % (A) 7 %; Neutrophils % (A) 84 %; Platelet Count 222 k/uL (150-450); Poikilocytosis Slight; RBC 4.44 m/uL (4.30-5.90); RDW 16.3 % (11.5-15.5); WBC 16.6 k/uL (3.8-10.6)
[2020-09-07 15:51] LABS: HGB 13.4 gm/dL (13.0-17.5)
[2020-09-07 16:05] LABS: ALT 33 U/L (4-49); AST 151 U/L (17-59); African American GFR (CKD) >90 (>60 ml/min/1.73 sqM); Albumin 3.5 g/dL (3.5-5.0); Alkaline Phosphatase 270 U/L (38-126); Amylase 72 U/L (30-110); Anion Gap 7 mmol/L; Blood Urea Nitrogen 18 mg/dL (9-20); Calcium 8.7 mg/dL (8.4-10.2); Carbon Dioxide 31 mmol/L (22-30); Chloride 93 mmol/L (98-107); Glucose 124 mg/dL (74-99); Lipase 179 U/L (23-300); Magnesium 1.7 mg/dL (1.6-2.3); Non-African American GFR(CKD) 84 (>60 ml/min/1.73 sqM); Potassium 4.3 mmol/L (3.5-5.1); Sodium 131 mmol/L (137-145); Total Bilirubin 4.5 mg/dL (0.2-1.3); Total Protein 8.4 g/dL (6.3-8.2)
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
[2020-09-07] MEDS ORDERED: HYDROmorphone 1 MG/ML 1 ML SYRINGE IVP STA (16:38)
[2020-09-07] MEDS ORDERED: SODIUM CHLORIDE 0.9% 1,000 ML IV ONE (16:38)
[2020-09-07] MEDS ORDERED: ONDANSETRON 4 MG/2 ML VIAL IVP STA (16:38)
[2020-09-07 17:32] LABS: INR 1.6 (<1.2); Partial Thromboplastin Time 29.8 sec (22.0-30.0)
[2020-09-07 17:36] LABS: Alcohol <10 mg/dL; Magnesium 1.7 mg/dL (1.6-2.3)
--- NOTE | 2020-09-07 17:36 | CT ---
EXAMINATION TYPE: CT abdomen pelvis w con DATE OF EXAM: 09/07/2020 COMPARISON: 08/23/2020 HISTORY: Generalized pain with known liver mass. CT DLP: 1338.2 mGycm Automated exposure control for dose reduction was used. CONTRAST: CT scan of the abdomen pelvis is performed with IV Contrast, patient injected with 100 mL of Isovue 3 00. FINDINGS- LUNG BASES-subsegmental areas of peripheral infiltrate are noted. Correlate for pneumonitis.. LIVER/GB- Redemonstrated hepatic nodular contour consistent with cirrhosis. Ill-defined, low attenu ating infiltrative lesions throughout the left lobe, measures approximately 10.1 x 7.6 cm. Upper abdo clarissa and esophageal varices again seen. . PANCREAS-there is a mass in the peripancreatic region measuring 3.7 cm. Retroperitoneal nodularity se en in the periaortic region may be related to the adrenal gland represent additional adenopathy measu ring 2.3 cm. SPLEEN-splenomegaly redemonstrated measuring 19 cm. ADRENALS- No gross abnormality is seen. KIDNEYS/BLADDER- no hydronephrosis nephrolithiasis or renal mass. BOWEL- no bowel dilatation. Normal appendix. LYMPH NODES- No greater than 1cm abdominal or pelvic lymph nodes areappreciated. OSSEOUS STRUCTURES-hypertrophic and degenerative changes of the spine.. OTHER- a moderate amount of ascites. Small fat and fluid containing periumbilical hernia. Numerous p araesophageal varices also noted. There is a nodular area of masslike attenuation left cardiophrenic angle suspicious for adenopathy also progressed from prior exam measuring 3.2 cm IMPRESSION- 1. Hepatomegaly with diffuse infiltrative mass within the left lobe liver, intra-abdominal varices an d splenomegaly correlate for hepatocellular disease. Note is made the left portal vein is not seen wh ich is stable from prior exam. 2. Moderate ascites 3. Peripancreatic and left periaortic mass or adenopathy. Findings are progressed from prior exam 3.2 cm soft tissue mass in the region of the left cardiophrenic angle may represent adenopathy or neopla sm. Similar to recent CT chest dated 08/26/2020. 4. Bilateral peripheral areas of groundglass changes in the lower lobes correlate for pneumonitis inc luding viral pneumonitis.
[2020-09-07] MEDS: HYDROmorphone 1 MG/ML 1 ML SYRINGE IVP PRN (23:51)
[2020-09-08] MEDS: ONDANSETRON 4 MG/2 ML VIAL IVP PRN ×2 (06:48→11:56)
[2020-09-08] MEDS: HYDROmorphone 1 MG/ML 1 ML SYRINGE IVP PRN ×3 (06:49→20:24)
[2020-09-08] MEDS ORDERED: SODIUM CHLORIDE 0.9% 500 ML 500 ML IV STA (13:28)
[2020-09-09] MEDS: HYDROmorphone 1 MG/ML 1 ML SYRINGE IVP PRN ×4 (01:45→18:25)
[2020-09-09] MEDS: ONDANSETRON 4 MG/2 ML VIAL IVP PRN (03:17)
[2020-09-09] MEDS ORDERED: PANTOPRAZOLE 40 MG/10 ML VIAL IVP SCH (10:45)
[2020-09-09] MEDS: traMADol 50 MG TAB PO SCH ×2 (10:59→21:52)
[2020-09-09 19:51] LABS: Anisocytosis Slight; Basophils % (A) 0 %; Eosinophils # (A) 0.2 k/uL (0-0.7); Eosinophils % (A) 2 %; HCT 34.8 % (39.0-53.0); HGB 11.5 gm/dL (13.0-17.5); Hypochromasia Slight; Lymphocytes # (A) 0.8 k/uL (1.0-4.8); Lymphocytes % (A) 7 %; MCH 29.9 pg (25.0-35.0); MCHC 33.2 g/dL (31.0-37.0); MCV 90.2 fL (80.0-100.0); Mean Platelet Volume 7.8; Monocytes # (A) 0.8 k/uL (0-1.0); Monocytes % (A) 7 %; Neutrophils # (A) 9.7 k/uL (1.3-7.7); Neutrophils % (A) 83 %; Platelet Count 123 k/uL (150-450); Poikilocytosis Slight; RBC 3.86 m/uL (4.30-5.90); RDW 16.5 % (11.5-15.5); WBC 11.8 k/uL (3.8-10.6)
[2020-09-09 20:06] LABS: ALT 29 U/L (4-49); AST 139 U/L (17-59); African American GFR (CKD) >90 (>60 ml/min/1.73 sqM); Alkaline Phosphatase 244 U/L (38-126); Anion Gap 3 mmol/L; Blood Urea Nitrogen 17 mg/dL (9-20); Calcium 8.6 mg/dL (8.4-10.2); Carbon Dioxide 32 mmol/L (22-30); Chloride 91 mmol/L (98-107); Glucose 120 mg/dL (74-99); Non-African American GFR(CKD) >90 (>60 ml/min/1.73 sqM); Potassium 4.6 mmol/L (3.5-5.1); Sodium 126 mmol/L (137-145); Total Bilirubin 3.5 mg/dL (0.2-1.3); Total Protein 7.3 g/dL (6.3-8.2)
[2020-09-10] MEDS: HYDROmorphone 1 MG/ML 1 ML SYRINGE IVP PRN (01:45)
[2020-09-10] MEDS: SODIUM CHLORIDE 0.9% 1,000 ML IV SCH ×2 (01:45→09:35)
[2020-09-10] MEDS: PANTOPRAZOLE 40 MG/10 ML VIAL IVP SCH (09:34)
[2020-09-10] MEDS: traMADol 50 MG TAB PO SCH ×2 (09:34→21:27)
[2020-09-11] MEDS: ONDANSETRON 4 MG/2 ML VIAL IVP PRN (00:37)
[2020-09-11] MEDS: HYDROmorphone 1 MG/ML 1 ML SYRINGE IVP PRN ×2 (00:37→16:29)
[2020-09-11] MEDS: SODIUM CHLORIDE 0.9% 1,000 ML IV SCH ×2 (00:38→15:04)
[2020-09-11] MEDS: PANTOPRAZOLE 40 MG/10 ML VIAL IVP SCH (10:33)
[2020-09-11] MEDS: traMADol 50 MG TAB PO SCH ×2 (10:33→22:10)
[2020-09-12] MEDS: HYDROmorphone 1 MG/ML 1 ML SYRINGE IVP PRN ×3 (01:21→23:12)
[2020-09-12] MEDS: PANTOPRAZOLE 40 MG/10 ML VIAL IVP SCH (09:08)
[2020-09-12] MEDS: SODIUM CHLORIDE 0.9% 1,000 ML IV SCH ×2 (15:28→23:12)
[2020-09-12] MEDS: traMADol 50 MG TAB PO SCH ×2 (16:36→23:11)
[2020-09-12] MEDS: ONDANSETRON 4 MG/2 ML VIAL IVP PRN (16:37)
[2020-09-13 08:06] VITALS: RESP 18
[2020-09-13] MEDS: HYDROmorphone 1 MG/ML 1 ML SYRINGE IVP PRN (08:56)
[2020-09-13] MEDS: SODIUM CHLORIDE 0.9% 1,000 ML IV SCH ×2 (08:57→17:59)
[2020-09-13] MEDS ORDERED: traMADol 50 MG TAB PO SCH (09:00)
[2020-09-13] MEDS: PANTOPRAZOLE 40 MG/10 ML VIAL IVP SCH ×3 (09:00→09:51)
[2020-09-13] MEDS ORDERED: HYDROmorphone 1 MG/ML 1 ML SYRINGE IVP PRN (09:05)
[2020-09-13] MEDS ORDERED: ONDANSETRON 4 MG/2 ML VIAL IVP PRN (09:06)
[2020-09-13] MEDS: traMADol 50 MG TAB PO SCH (09:51)
--- NOTE | 2020-09-13 15:55 | ED ---
Medical Decision Making - Medical Decision Making Patient reevaluated by myself, Dr. Gilmore. Patient is resting comfortably in bed. Patient does complain of some abdominal discomfort and does have mild to moderate distention with some ascites on exam. There is some tenderness more right upper quadrant. CT and labs reviewed. Case was discussed with Dr. Berry would like patient to be transferred or to consider driving himself and therefore hospital. Call was received from [facility] at [facility] and physician was unavailable at that time. Call again received from [facility]. Case was discussed with Dr. Garcia, who will accept transfer to a general alvarez with hepatology consult. - Lab Data Result diagrams: 09/09/20 19:44 09/09/20 19:44 Lab Results 09/07/20 09/07/20 09/07/20 Range/Units 15:07 15:28 15:28 WBC 16.6 H (3.8-10.6) k/uL RBC 4.44 (4.30-5.90) m/uL Hgb 13.4 D (13.0-17.5) gm/dL Hct 40.2 (39.0-53.0) % MCV 90.6 (80.0-100.0) fL MCH 30.1 (25.0-35.0) pg MCHC 33.2 (31.0-37.0) g/dL RDW 16.3 H (11.5-15.5) % Plt Count 222 (150-450) k/uL MPV 7.7 Neutrophils % 84 % Lymphocytes % 6 % Monocytes % 7 % Eosinophils % 1 % Basophils % 0 % Neutrophils # 14.0 H (1.3-7.7) k/uL Lymphocytes # 1.0 (1.0-4.8) k/uL Monocytes # 1.1 H (0-1.0) k/uL Eosinophils # 0.2 (0-0.7) k/uL Basophils # 0.1 (0-0.2) k/uL Hypochromasia Slight Poikilocytosis Slight Anisocytosis Slight PT (9.0-12.0) sec INR (<1.2) APTT (22.0-30.0) sec Sodium 131 L (137-145) mmol/L Potassium 4.3 (3.5-5.1) mmol/L Chloride 93 L (98-107) mmol/L Carbon Dioxide 31 H (22-30) mmol/L Anion Gap 7 mmol/L BUN 18 (9-20) mg/dL Creatinine 0.98 (0.66-1.25) mg/dL Est GFR (CKD-EPI)AfAm >90 (>60 ml/min/1.73 sqM) Est GFR (CKD-EPI)NonAf 84 (>60 ml/min/1.73 sqM) Glucose 124 H (74-99) mg/dL Lactic Ac Sepsis Rflx Plasma Lactic Acid Aj (0.7-2.0) mmol/L Calcium 8.7 (8.4-10.2) mg/dL Magnesium 1.7 (1.6-2.3) mg/dL Total Bilirubin 4.5 H (0.2-1.3) mg/dL AST 151 H (17-59) U/L ALT 33 (4-49) U/L Alkaline Phosphatase 270 H (38-126) U/L Total Protein 8.4 H (6.3-8.2) g/dL Albumin 3.5 (3.5-5.0) g/dL Amylase 72 (30-110) U/L Lipase 179 (23-300) U/L Urine Color Yellow Urine Appearance Clear (Clear) Urine pH 5.5 (5.0-8.0) Ur Specific [place] 1.008 (1.001-1.035) Urine Protein Negative (Negative) Urine Glucose (UA) Negative (Negative) Urine Ketones Negative (Negative) Urine Blood Negative (Negative) Urine Nitrite Negative (Negative) Urine Bilirubin Negative (Negative) Urine Urobilinogen <2.0 (<2.0) mg/dL Ur Leukocyte Esterase Negative (Negative) Serum Alcohol mg/dL Coronavirus (PCR) (Not Detectd) 09/07/20 09/07/20 09/07/20 Range/Units 17:06 17:06 17:06 WBC (3.8-10.6) k/uL RBC (4.30-5.90) m/uL Hgb (13.0-17.5) gm/dL Hct (39.0-53.0) % MCV (80.0-100.0) fL MCH (25.0-35.0) pg MCHC (31.0-37.0) g/dL RDW (11.5-15.5) % Plt Count (150-450) k/uL MPV Neutrophils % % Lymphocytes % % Monocytes % % Eosinophils % % Basophils % % Neutrophils # (1.3-7.7) k/uL Lymphocytes # (1.0-4.8) k/uL Monocytes # (0-1.0) k/uL Eosinophils # (0-0.7) k/uL Basophils # (0-0.2) k/uL Hypochromasia Poikilocytosis Anisocytosis PT 16.0 H (9.0-12.0) sec INR 1.6 H (<1.2) APTT 29.8 (22.0-30.0) sec Sodium (137-145) mmol/L Potassium (3.5-5.1) mmol/L Chloride (98-107) mmol/L Carbon Dioxide (22-30) mmol/L Anion Gap mmol/L BUN (9-20) mg/dL Creatinine (0.66-1.25) mg/dL Est GFR (CKD-EPI)AfAm (>60 ml/min/1.73 sqM) Est GFR (CKD-EPI)NonAf (>60 ml/min/1.73 sqM) Glucose (74-99) mg/dL Lactic Ac Sepsis Rflx Plasma Lactic Acid Aj 2.5 H* (0.7-2.0) mmol/L Calcium (8.4-10.2) mg/dL Magnesium 1.7 (1.6-2.3) mg/dL Total Bilirubin (0.2-1.3) mg/dL AST (17-59) U/L ALT (4-49) U/L Alkaline Phosphatase (38-126) U/L Total Protein (6.3-8.2) g/dL Albumin (3.5-5.0) g/dL Amylase (30-110) U/L Lipase (23-300) U/L Urine Color Urine Appearance (Clear) Urine pH (5.0-8.0) Ur Specific [place] (1.001-1.035) Urine Protein (Negative) Urine Glucose (UA) (Negative) Urine Ketones (Negative) Urine Blood (Negative) Urine Nitrite (Negative) Urine Bilirubin (Negative) Urine Urobilinogen (<2.0) mg/dL Ur Leukocyte Esterase (Negative) Serum Alcohol <10 mg/dL Coronavirus (PCR) (Not Detectd) 09/07/20 09/07/20 09/07/20 Range/Units 18:23 19:23 21:28 WBC (3.8-10.6) k/uL RBC (4.30-5.90) m/uL Hgb (13.0-17.5) gm/dL Hct (39.0-53.0) % MCV (80.0-100.0) fL MCH (25.0-35.0) pg MCHC (31.0-37.0) g/dL RDW (11.5-15.5) % Plt Count (150-450) k/uL MPV Neutrophils % % Lymphocytes % % Monocytes % % Eosinophils % % Basophils % % Neutrophils # (1.3-7.7) k/uL Lymphocytes # (1.0-4.8) k/uL Monocytes # (0-1.0) k/uL Eosinophils # (0-0.7) k/uL Basophils # (0-0.2) k/uL Hypochromasia Poikilocytosis Anisocytosis PT (9.0-12.0) sec INR (<1.2) APTT (22.0-30.0) sec Sodium (137-145) mmol/L Potassium (3.5-5.1) mmol/L Chloride (98-107) mmol/L Carbon Dioxide (22-30) mmol/L Anion Gap mmol/L BUN (9-20) mg/dL Creatinine (0.66-1.25) mg/dL Est GFR (CKD-EPI)AfAm (>60 ml/min/1.73 sqM) Est GFR (CKD-EPI)NonAf (>60 ml/min/1.73 sqM) Glucose (74-99) mg/dL Lactic Ac Sepsis Rflx Y Plasma Lactic Acid Aj 2.2 H* (0.7-2.0) mmol/L Calcium (8.4-10.2) mg/dL Magnesium (1.6-2.3) mg/dL Total Bilirubin (0.2-1.3) mg/dL AST (17-59) U/L ALT (4-49) U/L Alkaline Phosphatase (38-126) U/L Total Protein (6.3-8.2) g/dL Albumin (3.5-5.0) g/dL Amylase (30-110) U/L Lipase (23-300) U/L Urine Color Urine Appearance (Clear) Urine pH (5.0-8.0) Ur Specific [place] (1.001-1.035) Urine Protein (Negative) Urine Glucose (UA) (Negative) Urine Ketones (Negative) Urine Blood (Negative) Urine Nitrite (Negative) Urine Bilirubin (Negative) Urine Urobilinogen (<2.0) mg/dL Ur Leukocyte Esterase (Negative) Serum Alcohol mg/dL Coronavirus (PCR) Not Detected (Not Detectd) 09/07/20 09/08/20 09/08/20 Range/Units 22:38 01:00 01:45 WBC (3.8-10.6) k/uL RBC (4.30-5.90) m/uL Hgb (13.0-17.5) gm/dL Hct (39.0-53.0) % MCV (80.0-100.0) fL MCH (25.0-35.0) pg MCHC (31.0-37.0) g/dL RDW (11.5-15.5) % Plt Count (150-450) k/uL MPV Neutrophils % % Lymphocytes % % Monocytes % % Eosinophils % % Basophils % % Neutrophils # (1.3-7.7) k/uL Lymphocytes # (1.0-4.8) k/uL Monocytes # (0-1.0) k/uL Eosinophils # (0-0.7) k/uL Basophils # (0-0.2) k/uL Hypochromasia Poikilocytosis Anisocytosis PT (9.0-12.0) sec INR (<1.2) APTT (22.0-30.0) sec Sodium (137-145) mmol/L Potassium (3.5-5.1) mmol/L Chloride (98-107) mmol/L Carbon Dioxide (22-30) mmol/L Anion Gap mmol/L BUN (9-20) mg/dL Creatinine (0.66-1.25) mg/dL Est GFR (CKD-EPI)AfAm (>60 ml/min/1.73 sqM) Est GFR (CKD-EPI)NonAf (>60 ml/min/1.73 sqM) Glucose (74-99) mg/dL Lactic Ac Sepsis Rflx Y Y Plasma Lactic Acid Aj 2.4 H* (0.7-2.0) mmol/L Calcium (8.4-10.2) mg/dL Magnesium (1.6-2.3) mg/dL Total Bilirubin (0.2-1.3) mg/dL AST (17-59) U/L ALT (4-49) U/L Alkaline Phosphatase (38-126) U/L Total Protein (6.3-8.2) g/dL Albumin (3.5-5.0) g/dL Amylase (30-110) U/L Lipase (23-300) U/L Urine Color Urine Appearance (Clear) Urine pH (5.0-8.0) Ur Specific [place] (1.001-1.035) Urine Protein (Negative) Urine Glucose (UA) (Negative) Urine Ketones (Negative) Urine Blood (Negative) Urine Nitrite (Negative) Urine Bilirubin (Negative) Urine Urobilinogen (<2.0) mg/dL Ur Leukocyte Esterase (Negative) Serum Alcohol mg/dL Coronavirus (PCR) (Not Detectd) 09/08/20 09/08/20 09/09/20 Range/Units 04:02 04:35 19:44 WBC 11.8 H (3.8-10.6) k/uL RBC 3.86 L (4.30-5.90) m/uL Hgb 11.5 L (13.0-17.5) gm/dL Hct 34.8 L (39.0-53.0) % MCV 90.2 (80.0-100.0) fL MCH 29.9 (25.0-35.0) pg MCHC 33.2 (31.0-37.0) g/dL RDW 16.5 H (11.5-15.5) % Plt Count 123 L (150-450) k/uL MPV 7.8 Neutrophils % 83 % Lymphocytes % 7 % Monocytes % 7 % Eosinophils % 2 % Basophils % 0 % Neutrophils # 9.7 H (1.3-7.7) k/uL Lymphocytes # 0.8 L (1.0-4.8) k/uL Monocytes # 0.8 (0-1.0) k/uL Eosinophils # 0.2 (0-0.7) k/uL Basophils # 0.0 (0-0.2) k/uL Hypochromasia Slight Poikilocytosis Slight Anisocytosis Slight PT (9.0-12.0) sec INR (<1.2) APTT (22.0-30.0) sec Sodium (137-145) mmol/L Potassium (3.5-5.1) mmol/L Chloride (98-107) mmol/L Carbon Dioxide (22-30) mmol/L Anion Gap mmol/L BUN (9-20) mg/dL Creatinine (0.66-1.25) mg/dL Est GFR (CKD-EPI)AfAm (>60 ml/min/1.73 sqM) Est GFR (CKD-EPI)NonAf (>60 ml/min/1.73 sqM) Glucose (74-99) mg/dL Lactic Ac Sepsis Rflx Y Plasma Lactic Acid Aj 2.5 H* (0.7-2.0) mmol/L Calcium (8.4-10.2) mg/dL Magnesium (1.6-2.3) mg/dL Total Bilirubin (0.2-1.3) mg/dL AST (17-59) U/L ALT (4-49) U/L Alkaline Phosphatase (38-126) U/L Total Protein (6.3-8.2) g/dL Albumin (3.5-5.0) g/dL Amylase (30-110) U/L Lipase (23-300) U/L Urine Color Urine Appearance (Clear) Urine pH (5.0-8.0) Ur Specific [place] (1.001-1.035) Urine Protein (Negative) Urine Glucose (UA) (Negative) Urine Ketones (Negative) Urine Blood (Negative) Urine Nitrite (Negative) Urine Bilirubin (Negative) Urine Urobilinogen (<2.0) mg/dL Ur Leukocyte Esterase (Negative) Serum Alcohol mg/dL Coronavirus (PCR) (Not Detectd) 09/09/20 Range/Units 19:44 WBC (3.8-10.6) k/uL RBC (4.30-5.90) m/uL Hgb (13.0-17.5) gm/dL Hct (39.0-53.0) % MCV (80.0-100.0) fL MCH (25.0-35.0) pg MCHC (31.0-37.0) g/dL RDW (11.5-15.5) % Plt Count (150-450) k/uL MPV Neutrophils % % Lymphocytes % % Monocytes % % Eosinophils % % Basophils % % Neutrophils # (1.3-7.7) k/uL Lymphocytes # (1.0-4.8) k/uL Monocytes # (0-1.0) k/uL Eosinophils # (0-0.7) k/uL Basophils # (0-0.2) k/uL Hypochromasia Poikilocytosis Anisocytosis PT (9.0-12.0) sec INR (<1.2) APTT (22.0-30.0) sec Sodium 126 L (137-145) mmol/L Potassium 4.6 (3.5-5.1) mmol/L Chloride 91 L (98-107) mmol/L Carbon Dioxide 32 H (22-30) mmol/L Anion Gap 3 mmol/L BUN 17 (9-20) mg/dL Creatinine 0.82 (0.66-1.25) mg/dL Est GFR (CKD-EPI)AfAm >90 (>60 ml/min/1.73 sqM) Est GFR (CKD-EPI)NonAf >90 (>60 ml/min/1.73 sqM) Glucose 120 H (74-99) mg/dL Lactic Ac Sepsis Rflx Plasma Lactic Acid Aj (0.7-2.0) mmol/L Calcium 8.6 (8.4-10.2) mg/dL Magnesium (1.6-2.3) mg/dL Total Bilirubin 3.5 H (0.2-1.3) mg/dL AST 139 H (17-59) U/L ALT 29 (4-49) U/L Alkaline Phosphatase 244 H (38-126) U/L Total Protein 7.3 (6.3-8.2) g/dL Albumin 3.0 L (3.5-5.0) g/dL Amylase (30-110) U/L Lipase (23-300) U/L Urine Color Urine Appearance (Clear) Urine pH (5.0-8.0) Ur Specific [place] (1.001-1.035) Urine Protein (Negative) Urine Glucose (UA) (Negative) Urine Ketones (Negative) Urine Blood (Negative) Urine Nitrite (Negative) Urine Bilirubin (Negative) Urine Urobilinogen (<2.0) mg/dL Ur Leukocyte Esterase (Negative) Serum Alcohol mg/dL Coronavirus (PCR) (Not Detectd) Disposition Clinical Impression: Abdominal pain, Nausea and vomiting, Ascites, Intraabdominal mass Disposition: OTHER INSTITUTION NOT DEFINED Condition: Stable Is patient prescribed a controlled substance at d/c from ED?: No Referrals: Felipe Mcallister MD [Primary Care Provider] - 1-2 days - Out of Hospital Transfer - Req. Specs Out of Hospital Transfer - Requested Specifics: Other Non-Acute
[2020-09-13 17:06] VITALS: BP 102/84; PULSE 88; TEMP 98.3
== END 2020-09-13 18:51 | disposition other institution (70) ==
LOC: EC 13:09
DX: R18.8 Other ascites (principal); R10.9 Unspecified abdominal pain; R11.2 Nausea with vomiting, unspecified; K21.9 Gastro-esophageal reflux disease without esophagitis; H91.90 Unspecified hearing loss, unspecified ear; Z03.818 Encounter for observation for suspected exposure to other biological agents ruled out; Z79.899 Other long term (current) drug therapy; Z88.0 Allergy status to penicillin; Z88.6 Allergy status to analgesic agent; Z90.49 Acquired absence of other specified parts of digestive tract; Z87.891 Personal history of nicotine dependence
CPT/HCPCS: 99285 ×2; 96374 ×2; 96375 ×2; 96376 ×2; 96361 ×4; 36415 ×2; 80053; 82150; 83605 ×2; 83690; 83735; 85025; 85610; 85730; 81003; 87635 ×2; 74177; G0480; J2405 ×5; J1170 ×7; C9113 ×5; Q9967; 80320